=== PATIENT | male | born 1960 | race Two or more races ===

== ENCOUNTER 2016-07-21 17:26 | Inpatient (IN) | payer OTHER ==
[~2016-07-21] VITALS: Ht 170.2 cm; Wt 91.4 kg
[~2016-07-21 17:26] MED LIST: ASPIR 8181 M1 PO; ATORVASTATIN CA20 MG PO; BENICAR40 MG PO; Colace PO; Ecotrin PO; GLIPIZIDE10 MG PO; GLUCAGEN1 MG IM/SC; GLUCOTROL10 MG PO; Glucotrol PO; Heparin IV; Januvia PO; KEFLEX500 MG PO; LIPITOR20 MG PO; LISINOPRIL10 MG PO; LOPRESSOR25 MG PO; LOW DOSE ASPIRI81 M2 PO; Lipitor PO; METFORMIN HCL500 MG PO; NAPROSYN500 MG PO; NORVASC5 MG PO; Nitrostat,NitroQuick SL; PERCOCET 5/31 TABLET PO; Plavix PO; Senokot S,Pericolace PO; TRAMADOL HCL50 MG PO; Toprol XL PO; Xanax PO; Zestril,Prinivil PO
[2016-07-21 19:41] LABS: EOSINOPHIL (%) 2.7 % (0-5); EOSINOPHIL COUNT 0.2 K/uL (0-0.3); HEMATOCRIT 30.6 % (38.0-50.0); IMMATURE GRANULOCYTE (%) 0.1 % (0.0-0.7); IMMATURE GRANULOCYTE COUNT 0.1 K/uL; MCH 26.7 PG (29.0-34.0); MCHC 32.7 G/DL (30.0-36.0); MCV 81.8 FL (86-99); MEAN PLAT.VOLUME 11.3 uM^3 (9.0-12.4); MONOCYTE COUNT 0.5 K/uL (0-0.8); NEUTROPHIL (%) 61.6 % (45-76); NEUTROPHIL COUNT 4.3 K/uL (1.8-6.4); PLATELET COUNT 275 K/uL (156-360); RBC DIS.WIDTH-CV 13.6 % (11.8-14.6); RBC DIS.WIDTH-SD 39.2 % (39-53); RED BLOOD COUNT 3.74 M/uL (4.00-5.50)
[2016-07-21] MEDS ORDERED: IRBESARTAN300 MG PO (19:51)
[2016-07-21] MEDS ORDERED: CLOPIDOGREL75 MG PO (19:52)
[2016-07-21] MEDS ORDERED: AMLODIPINE BESY10 MG PO (19:53)
[2016-07-21] MEDS ORDERED: JANUVIA25 M1 PO (19:53)
[2016-07-21] MEDS ORDERED: LISINOPRIL30 MG PO ×2 (19:54)
[2016-07-21] MEDS ORDERED: GLUCOPHAGE1000 MG PO (19:55)
[2016-07-21] MEDS ORDERED: LOPRESSOR25 MG PO (19:56)
[2016-07-21] MEDS ORDERED: ERGOCALCIF50000 UNIT PO (19:57)
[2016-07-21 19:59] LABS: ANION GAP 7 MEQ/L (2-14)
[2016-07-21 20:00] LABS: GLUCOSE 62 mg/dL (70-99); TOTAL BILIRUBIN 0.2 mg/dL (0.0-1.0)
[2016-07-21 20:02] LABS: ALKALINE PHOSPHATASE 56 IU/L (3-129); GFR ESTIMATE (CALCULATED) 22 mL/min/
[2016-07-21 20:03] LABS: UREA NITROGEN (BUN) 52 mg/dL (9-23)
[2016-07-21 20:12] LABS: CHLORIDE 113 mEq/L (99-109); SODIUM 140 mEq/L (136-147)
[2016-07-21 20:16] LABS: POTASSIUM 6.8 mEq/L (3.7-5.4)
[2016-07-21 21:13] LABS: TROP-I INTERPRETATION NEGATIVE; TROPONIN-I 0.02 ng/mL (0.0-0.30)
[2016-07-21 21:49] LABS: ADD MIUA? YES; BILIRUBIN NEGATIVE; BLOOD NEGATIVE; COLOR STRAW ((YELLOW)); GLUCOSE (STRIP) NEGATIVE; KETONES NEGATIVE; LEUKOCYTES NEGATIVE; NITRITE NEGATIVE; PROTEIN (STRIP) >=500; SPECIFIC GRAVITY 1.013 (1.000-1.030); UROBILINOGEN 0.2 MG/DL (0.2-1.0)
[2016-07-21 21:57] LABS: BACTERIA RARE /HPF; EPITHELIAL CELLS RARE /HPF; MUCUS TRACE /LPF; RED BLOOD CELLS 0-5 /HPF (0-5); UCUL ADDED? NO; WHITE BLOOD CELLS 0-5 /HPF (0-5)
[2016-07-21 22:36] LABS: POINT-OF-CARE METER ID UU14100415
[2016-07-21 23:26] LABS: CHLORIDE 111 mEq/L (99-109); SODIUM 140 mEq/L (136-147)
[2016-07-21 23:29] LABS: ANION GAP 9 MEQ/L (2-14)
[2016-07-21 23:31] LABS: GFR ESTIMATE (CALCULATED) 23 mL/min/
[2016-07-21 23:32] LABS: UREA NITROGEN (BUN) 47 mg/dL (9-23)
[2016-07-21 23:38] LABS: GLUCOSE 146 mg/dL (70-99); POTASSIUM 5.2 mEq/L (3.7-5.4)
[2016-07-22 00:02] LABS: UR CREATININE CONCENTRATION 86.8 MG/DL
[2016-07-22 00:10] VITALS: BP 168/81
[2016-07-22 04:00] VITALS: BP 141/76
[2016-07-22 06:05] LABS: EOSINOPHIL (%) 2.2 % (0-5); EOSINOPHIL COUNT 0.1 K/uL (0-0.3); HEMATOCRIT 26.5 % (38.0-50.0); IMMATURE GRANULOCYTE (%) 0.2 % (0.0-0.7); LYMPHOCYTE COUNT 1.7 K/uL (1.0-2.8); MCH 27.4 PG (29.0-34.0); MCHC 32.8 G/DL (30.0-36.0); MCV 83.3 FL (86-99); MEAN PLAT.VOLUME 11.4 uM^3 (9.0-12.4); MONOCYTE (%) 7.4 % (3-12); MONOCYTE COUNT 0.4 K/uL (0-0.8); NEUTROPHIL (%) 58.2 % (45-76); NEUTROPHIL COUNT 3.2 K/uL (1.8-6.4); PLATELET COUNT 243 K/uL (156-360); RBC DIS.WIDTH-CV 13.5 % (11.8-14.6); RBC DIS.WIDTH-SD 41.3 % (39-53); RED BLOOD COUNT 3.18 M/uL (4.00-5.50); WHITE BLOOD COUNT 5.4 K/uL (4.1-10.2)
[2016-07-22 06:28] LABS: C3 COMPLEMENT 156 MG/DL (58-170); C4 COMPLEMENT 55 MG/DL (10-40)
[2016-07-22 06:29] LABS: ALKALINE PHOSPHATASE 44 IU/L (3-129); ANION GAP 5 MEQ/L (2-14); CHLORIDE 112 MEQ/L (99-109); DIRECT BILIRUBIN 0.1 mg/dL (0.0-0.3); GFR ESTIMATE (CALCULATED) 25 mL/min/; GLUCOSE 114 mg/dL (70-99); IRON 53 MCG/DL (35-150); POTASSIUM 5.2 MEQ/L (3.7-5.4); SAMPLE HEMOLYSIS CHECK 0; SAMPLE ICTERIC CHECK 0; SAMPLE LIPEMIA CHECK 0; SODIUM 139 MEQ/L (136-147); UREA NITROGEN (BUN) 44 mg/dL (9-23)
[2016-07-22 06:33] LABS: TOTAL BILIRUBIN 0.2 MG/DL (0.0-1.0)
[2016-07-22 06:50] LABS: URINE TOTAL PROTEIN 450 MG/DL (0-10)
[2016-07-22 07:19] VITALS: BP 114/55
[2016-07-22 08:00] LABS: INTACT PARATHYROID HORMONE 167 pg/mL (10-69)
[2016-07-22 08:45] LABS: POINT-OF-CARE METER ID UU13113698
[2016-07-22 11:23] VITALS: BP 122/70
[2016-07-22 11:44] LABS: POINT-OF-CARE METER ID UU14174216
[2016-07-22 12:39] LABS: HBSG INDEX 0.27; HPCA INDEX 0.21
[2016-07-22 12:40] LABS: AHBS INDEX 0.02; HEPATITIS B SURFACE ANTIBODY Nonreactive
[2016-07-22 14:24] LABS: ANION GAP 8 MEQ/L (2-14); CHLORIDE 112 MEQ/L (99-109); GFR ESTIMATE (CALCULATED) 25 mL/min/; GLUCOSE 159 mg/dL (70-99); POTASSIUM 5.5 MEQ/L (3.7-5.4); SAMPLE HEMOLYSIS CHECK 0; SAMPLE ICTERIC CHECK 0; SAMPLE LIPEMIA CHECK 0; SODIUM 141 MEQ/L (136-147); UREA NITROGEN (BUN) 43 mg/dL (9-23)
[2016-07-22 16:26] LABS: POINT-OF-CARE METER ID UU14174216
[2016-07-22 16:53] VITALS: BP 154/79
[2016-07-22 20:35] VITALS: BP 127/60
[2016-07-22 21:03] LABS: POINT-OF-CARE METER ID UU13113698
[2016-07-23 00:20] VITALS: BP 120/58
[2016-07-23 04:40] VITALS: BP 140/74
[2016-07-23 07:03] LABS: EOSINOPHIL (%) 2.9 % (0-5); EOSINOPHIL COUNT 0.2 K/uL (0-0.3); HEMATOCRIT 22.3 % (38.0-50.0); IMMATURE GRANULOCYTE (%) 0.2 % (0.0-0.7); LYMPHOCYTE COUNT 1.9 K/uL (1.0-2.8); MCH 27.8 PG (29.0-34.0); MCHC 33.6 G/DL (30.0-36.0); MCV 82.6 FL (86-99); MEAN PLAT.VOLUME 11.2 uM^3 (9.0-12.4); MONOCYTE (%) 7.4 % (3-12); MONOCYTE COUNT 0.5 K/uL (0-0.8); NEUTROPHIL (%) 58.3 % (45-76); NEUTROPHIL COUNT 3.7 K/uL (1.8-6.4); PLATELET COUNT 200 K/uL (156-360); RBC DIS.WIDTH-CV 13.6 % (11.8-14.6); RBC DIS.WIDTH-SD 41.5 % (39-53); WHITE BLOOD COUNT 6.3 K/uL (4.1-10.2)
[2016-07-23 07:34] LABS: ANION GAP 8 MEQ/L (2-14); CHLORIDE 112 MEQ/L (99-109); GFR ESTIMATE (CALCULATED) 27 mL/min/; GLUCOSE 158 mg/dL (70-99); POTASSIUM 5.4 MEQ/L (3.7-5.4); SAMPLE HEMOLYSIS CHECK 0; SAMPLE ICTERIC CHECK 0; SAMPLE LIPEMIA CHECK 0; SODIUM 140 MEQ/L (136-147); UREA NITROGEN (BUN) 41 mg/dL (9-23)
[2016-07-23 08:09] LABS: POINT-OF-CARE METER ID UU13113698
[2016-07-23 08:10] VITALS: BP 157/76
[2016-07-23 11:09] LABS: IFE GEL NO. 18-9
[2016-07-23 11:15] VITALS: BP 130/60
[2016-07-23 16:00] VITALS: BP 116/59
[2016-07-23 19:15] VITALS: BP 174/77
[2016-07-24] VITALS (7 sets, daily range): BP systolic 131–192; BP diastolic 66–84
[2016-07-24 05:07] LABS: ABSOLUTE RETICULOCYTE CT. 0.05 M/uL (0.02-0.08); HEMATOCRIT 26.2 % (38.0-50.0); IMM.RETIC FRACTION 6.3 % (3-19); MCH 27.6 PG (29.0-34.0); MCHC 33.6 G/DL (30.0-36.0); MCV 82.1 FL (86-99); MEAN PLAT.VOLUME 11.3 uM^3 (9.0-12.4); PLATELET COUNT 222 K/uL (156-360); RBC DIS.WIDTH-CV 13.3 % (11.8-14.6); RBC DIS.WIDTH-SD 40.3 % (39-53); RED BLOOD COUNT 3.19 M/uL (4.00-5.50); RETICULOCYTE COUNT 1.7 % (0.5-1.8); WHITE BLOOD COUNT 6.1 K/uL (4.1-10.2)
[2016-07-24 05:45] LABS: ALKALINE PHOSPHATASE 42 IU/L (3-129); ANION GAP 8 MEQ/L (2-14); CHLORIDE 110 MEQ/L (99-109); GFR ESTIMATE (CALCULATED) 29 mL/min/; GLUCOSE 145 mg/dL (70-99); IRON 342 MCG/DL (35-150); POTASSIUM 4.8 MEQ/L (3.7-5.4); SAMPLE HEMOLYSIS CHECK 0; SAMPLE ICTERIC CHECK 0; SAMPLE LIPEMIA CHECK 0; SODIUM 139 MEQ/L (136-147); TOTAL BILIRUBIN 0.2 MG/DL (0.0-1.0); UREA NITROGEN (BUN) 35 mg/dL (9-23)
[2016-07-24 05:50] LABS: LACTATE DEHYDROGENASE 121 IU/L (20-246)
[2016-07-24 11:30] LABS: IFE GEL NO. 19-4
[2016-07-24 16:19] LABS: POINT-OF-CARE METER ID UU13113698
[2016-07-24] MEDS ORDERED: CLONIDINE HCL0.1 MG PO (18:43)
[2016-07-24] MEDS ORDERED: LOPRESSOR25 MG PO (18:43)
[2016-07-24] MEDS ORDERED: PANTOPRAZOLE SO40 MG PO (18:44)
[2016-07-24] MEDS ORDERED: Vitamin B-12 PO (18:45)
[2016-07-24] MEDS ORDERED: CALCITRIOL0.25 MCG PO (18:45)
[2016-07-27 23:50] LABS: Cryoglobulin, Qualitative None Detected (None Detected)
== END 2016-07-24 19:40 | disposition home or self-care (01) | DRG 641 ==
LOC: EME 17:26 → 4EAST 21:27 → EDOF 21:27 → 4EAST 23:58
PROVIDERS: Emergency Medicine; Internal Medicine; Internal Medicine Nephrology; Psychiatry & Neurology Neurology
DX: E87.5 Hyperkalemia (principal); N17.9 Acute kidney failure, unspecified; E11.21 Type 2 diabetes mellitus with diabetic nephropathy; E11.65 Type 2 diabetes mellitus with hyperglycemia; E87.2 Acidosis; N28.1 Cyst of kidney, acquired; N18.3 Chronic kidney disease, stage 3 (moderate); I12.9 Hypertensive chronic kidney disease with stage 1 through stage 4 chronic kidney disease, or unspecified chronic kidney disease; D64.9 Anemia, unspecified; E66.9 Obesity, unspecified; E78.5 Hyperlipidemia, unspecified; I25.10 Atherosclerotic heart disease of native coronary artery without angina pectoris; Z95.1 Presence of aortocoronary bypass graft; Z79.1 Long term (current) use of non-steroidal anti-inflammatories (NSAID); I25.2 Old myocardial infarction; Z68.30 Body mass index [BMI] 30.0-30.9, adult
CPT/HCPCS: 36415; 71010; 76770; 80048 91; 80053; 80061; 80069; 80076; 81003; 82272; 82306; 82436; 82570; 82595 90; 82607; 82746; 82948; 83036; 83540; 83615; 83735; 83970; 84100; 84133; 84156; 84300; 84439; 84466; 84484; 85025; 85027; 85045; 86160; 86334; 86335; 86706; 86803; 87340; 93005; 99281; 99285; J0610; J0881; J1756; J1815; J7030; J7050

== ENCOUNTER 2016-07-26 11:12 | Emergency (ER) | payer OTHER ==
[~2016-07-26] VITALS: Ht 170.2 cm; Wt 90.1 kg
[~2016-07-26 11:12] MED LIST changes: +AMLODIPINE BESY10 MG PO; +CALCITRIOL0.25 MCG PO; +CLONIDINE HCL0.1 MG PO; +CLOPIDOGREL75 MG PO; +ERGOCALCIF50000 UNIT PO; +GLUCOPHAGE1000 MG PO; +IRBESARTAN300 MG PO; +JANUVIA25 M1 PO; +LISINOPRIL30 MG PO; +PANTOPRAZOLE SO40 MG PO; +Vitamin B-12 PO
[2016-07-26 11:35] VITALS: BP 138/76
[2016-07-26] MEDS ORDERED: LOPRESSOR25 MG PO (23:29)
[2016-07-26] MEDS ORDERED: PROTONIX40 MG PO (23:31)
[2016-07-26] MEDS ORDERED: B-12500 MC1 SL (23:33)
[2016-07-26] MEDS ORDERED: COZAAR100 MG PO (23:33)
== END 2016-07-26 13:07 | disposition left against medical advice (07) ==
LOC: EME 11:12
DX: M79.601 Pain in right arm (principal); Z53.21 Procedure and treatment not carried out due to patient leaving prior to being seen by health care provider

== ENCOUNTER 2016-07-26 18:53 | Inpatient (IN) | payer OTHER ==
[~2016-07-26] VITALS: Ht 170.2 cm; Wt 88.4 kg
[2016-07-26 20:00] LABS: HEMATOCRIT 28.2 % (38.0-50.0); MCH 27.7 PG (29.0-34.0); MCHC 33.7 G/DL (30.0-36.0); MCV 82.2 FL (86-99); MEAN PLAT.VOLUME 11.2 uM^3 (9.0-12.4); PLATELET COUNT 268 K/uL (156-360); RBC DIS.WIDTH-CV 13.7 % (11.8-14.6); RBC DIS.WIDTH-SD 38.5 % (39-53); RED BLOOD COUNT 3.43 M/uL (4.00-5.50)
[2016-07-26 20:06] LABS: INTER. NORMALIZED RATIO 1.1; PROTHROMBIN TIME 10.7 (9.2-11.2); PTT 32.6 (25-32); WHITE BLOOD COUNT 10.3 K/uL (4.1-10.2)
[2016-07-26 21:02] LABS: CHLORIDE 109 mEq/L (99-109); POTASSIUM 4.7 mEq/L (3.7-5.4); SODIUM 138 mEq/L (136-147)
[2016-07-26 21:05] LABS: ANION GAP 13 MEQ/L (2-14)
[2016-07-26 21:06] LABS: GLUCOSE 239 mg/dL (70-99)
[2016-07-26 21:07] LABS: GFR ESTIMATE (CALCULATED) 22 mL/min/
[2016-07-26 21:08] LABS: UREA NITROGEN (BUN) 43 mg/dL (9-23)
[2016-07-26] MEDS ORDERED: LOPRESSOR25 MG PO (23:29)
[2016-07-26] MEDS ORDERED: PROTONIX40 MG PO (23:31)
[2016-07-26] MEDS ORDERED: COZAAR100 MG PO (23:33)
[2016-07-26] MEDS ORDERED: B-12500 MC1 SL (23:33)
[2016-07-27] VITALS (7 sets, daily range): BP systolic 122–178; BP diastolic 58–78
[2016-07-27 07:35] LABS: HEMATOCRIT 29.1 % (38.0-50.0); MCH 26.5 PG (29.0-34.0); MCHC 32.3 G/DL (30.0-36.0); MEAN PLAT.VOLUME 11.3 uM^3 (9.0-12.4); PLATELET COUNT 233 K/uL (156-360); RBC DIS.WIDTH-CV 13.9 % (11.8-14.6); RED BLOOD COUNT 3.55 M/uL (4.00-5.50); WHITE BLOOD COUNT 7.4 K/uL (4.1-10.2)
[2016-07-27 08:02] LABS: ANION GAP 12 MEQ/L (2-14); CHLORIDE 110 MEQ/L (99-109); POTASSIUM 4.7 MEQ/L (3.7-5.4); SAMPLE HEMOLYSIS CHECK 0; SAMPLE ICTERIC CHECK 0; SAMPLE LIPEMIA CHECK 0; SODIUM 139 MEQ/L (136-147); TOTAL BILIRUBIN 0.2 MG/DL (0.0-1.0)
[2016-07-27 08:07] LABS: ALKALINE PHOSPHATASE 58 IU/L (3-129); GFR ESTIMATE (CALCULATED) 23 mL/min/; GLUCOSE 148 mg/dL (70-99); UREA NITROGEN (BUN) 42 mg/dL (9-23)
[2016-07-27 11:04] LABS: POINT-OF-CARE METER ID UU14162508
[2016-07-28 00:25] VITALS: BP 145/78
[2016-07-28 03:48] VITALS: BP 124/72
[2016-07-28 06:47] LABS: EOSINOPHIL COUNT 0.1 K/uL (0-0.3); HEMATOCRIT 27.1 % (38.0-50.0); IMMATURE GRANULOCYTE (%) 0.9 % (0.0-0.7); IMMATURE GRANULOCYTE COUNT 0.1 K/uL; LYMPHOCYTE COUNT 1.7 K/uL (1.0-2.8); MCH 27.3 PG (29.0-34.0); MCHC 33.2 G/DL (30.0-36.0); MCV 82.1 FL (86-99); MEAN PLAT.VOLUME 11.9 uM^3 (9.0-12.4); MONOCYTE (%) 6.5 % (3-12); MONOCYTE COUNT 0.5 K/uL (0-0.8); NEUTROPHIL (%) 65.1 % (45-76); NEUTROPHIL COUNT 4.5 K/uL (1.8-6.4); NRBC (%) 0.6 /100 WBC (0-0); PLATELET COUNT 255 K/uL (156-360); RBC DIS.WIDTH-SD 41.1 % (39-53); WHITE BLOOD COUNT 6.9 K/uL (4.1-10.2)
[2016-07-28 07:12] LABS: ANION GAP 12 MEQ/L (2-14); CHLORIDE 107 MEQ/L (99-109); GFR ESTIMATE (CALCULATED) 24 mL/min/; GLUCOSE 161 mg/dL (70-99); POTASSIUM 4.5 MEQ/L (3.7-5.4); SAMPLE HEMOLYSIS CHECK 0; SAMPLE ICTERIC CHECK 0; SAMPLE LIPEMIA CHECK 0; SODIUM 139 MEQ/L (136-147); UREA NITROGEN (BUN) 39 mg/dL (9-23)
[2016-07-28 07:30] VITALS: BP 167/72
[2016-07-28 11:24] VITALS: BP 131/60
[2016-07-28 11:32] LABS: POINT-OF-CARE METER ID UU14162508
[2016-07-28] MEDS ORDERED: CEPHALEXIN500 MG PO (14:27)
[2016-07-28] MEDS ORDERED: ENDOCET 5-3251 EACH PO (14:27)
== END 2016-07-28 17:05 | disposition home or self-care (01) | DRG 300 ==
LOC: EME 18:53 → EDOF 23:36 → 2EAST 23:36
PROVIDERS: Internal Medicine
DX: T81.72XA Complication of vein following a procedure, not elsewhere classified, initial encounter (principal); T88.8XXA Other specified complications of surgical and medical care, not elsewhere classified, initial encounter; I80.8 Phlebitis and thrombophlebitis of other sites; L03.113 Cellulitis of right upper limb; I12.9 Hypertensive chronic kidney disease with stage 1 through stage 4 chronic kidney disease, or unspecified chronic kidney disease; N18.9 Chronic kidney disease, unspecified; R78.5 Finding of other psychotropic drug in blood; E11.22 Type 2 diabetes mellitus with diabetic chronic kidney disease; I25.10 Atherosclerotic heart disease of native coronary artery without angina pectoris; Z95.1 Presence of aortocoronary bypass graft; E78.5 Hyperlipidemia, unspecified; E55.9 Vitamin D deficiency, unspecified; E53.8 Deficiency of other specified B group vitamins; R10.13 Epigastric pain; D64.9 Anemia, unspecified; E66.9 Obesity, unspecified; Z68.30 Body mass index [BMI] 30.0-30.9, adult; Y84.8 Other medical procedures as the cause of abnormal reaction of the patient, or of later complication, without mention of misadventure at the time of the procedure
CPT/HCPCS: 80048; 80053; 82948; 85025; 85027; 85610; 85730; 87040; 93971; 99281; 99285; J0696; J1644; J1815; J3370; J3420; J7050

== ENCOUNTER 2016-09-13 11:15 | Inpatient (IN) | payer OTHER ==
[~2016-09-13] VITALS: Ht 170.2 cm; Wt 87.2 kg
[~2016-09-13 11:15] MED LIST changes: +B-12500 MC1 SL; +CEPHALEXIN500 MG PO; +COZAAR100 MG PO; +ENDOCET 5-3251 EACH PO; +PROTONIX40 MG PO
[2016-09-13 11:33] LABS: BASE EXCESS -7.9 mEq/L (-3 to +3); BICARBONATE 16.4 mEq/L (22-26); CARBOXY HGB 0.8 % (0-5); COMMENTS - BLOOD GASES A+C+; DEVICE RA; METHEMOGLOBIN 0.5 % (0-1.5); PCO2 29 mm Hg (35-45); PO2 99 mm Hg (80-100); SITE RR; pH 7.36 (7.35-7.45)
[2016-09-13 11:48] LABS: ANION GAP 17 MEQ/L (2-14); CHLORIDE 109 mEq/L (99-109); CREATININE 2.8 mg/dL (0.6-1.3); GLUCOSE 216 mg/dL (70-99); ISTAT DEVICE 369301; POTASSIUM > 6.0 mEq/L (3.7-5.4); SODIUM 137 mEq/L (136-147); UREA NITROGEN (BUN) 44 mg/dL (9-23)
[2016-09-13 11:52] LABS: BASOPHIL COUNT 0.1 K/uL (0-0.1); EOSINOPHIL (%) 0.5 % (0-5); EOSINOPHIL COUNT 0.1 K/uL (0-0.3); HEMATOCRIT 33.9 % (38.0-50.0); IMMATURE GRANULOCYTE (%) 0.3 % (0.0-0.7); INSTRUMENT ABS NEUTROPHIL CT 9.5 K/uL; LYMPHOCYTE COUNT 1.2 K/uL (1.0-2.8); MCH 25.6 PG (29.0-34.0); MCHC 30.7 G/DL (30.0-36.0); MCV 83.5 FL (86-99); MEAN PLAT.VOLUME 11.5 uM^3 (9.0-12.4); MONOCYTE COUNT 0.3 K/uL (0-0.8); NEUTROPHIL (%) 85.4 % (45-76); NEUTROPHIL COUNT 9.5 K/uL (1.8-6.4); PLATELET COUNT 285 K/uL (156-360); RBC DIS.WIDTH-CV 14.1 % (11.8-14.6); RBC DIS.WIDTH-SD 43.3 % (39-53); RED BLOOD COUNT 4.06 M/uL (4.00-5.50); WHITE BLOOD COUNT 11.1 K/uL (4.1-10.2)
[2016-09-13 12:03] LABS: CHLORIDE 109 mEq/L (99-109); SODIUM 136 mEq/L (136-147)
[2016-09-13 12:05] LABS: GLUCOSE 217 mg/dL (70-99)
[2016-09-13 12:06] LABS: ANION GAP 10 MEQ/L (2-14)
[2016-09-13 12:07] LABS: TOTAL BILIRUBIN 0.2 mg/dL (0.0-1.0)
[2016-09-13 12:09] LABS: ALKALINE PHOSPHATASE 78 IU/L (3-129); GFR ESTIMATE (CALCULATED) 25 mL/min/
[2016-09-13 12:10] LABS: UREA NITROGEN (BUN) 46 mg/dL (9-23)
[2016-09-13 12:14] LABS: TROP-I INTERPRETATION NEGATIVE; TROPONIN-I < 0.01 ng/mL (0.0-0.30)
[2016-09-13 12:46] LABS: POTASSIUM 6.7 mEq/L (3.7-5.4)
[2016-09-13] MEDS ORDERED: ALEVE220 MG PO (14:52)
[2016-09-13] MEDS ORDERED: NABI650T PO (14:52)
[2016-09-13] MEDS ORDERED: HYDRALAZINE HCL25 MG PO (14:52)
[2016-09-13 16:30] VITALS: BP 181/87
[2016-09-13 18:50] VITALS: BP 176/77
[2016-09-13 23:32] VITALS: BP 123/58
[2016-09-14] VITALS (7 sets, daily range): BP systolic 121–163; BP diastolic 61–76
[2016-09-14 06:35] LABS: HEMATOCRIT 28.9 % (38.0-50.0); MCH 25.7 PG (29.0-34.0); MCHC 30.8 G/DL (30.0-36.0); MCV 83.5 FL (86-99); MEAN PLAT.VOLUME 11.4 uM^3 (9.0-12.4); PLATELET COUNT 231 K/uL (156-360); RBC DIS.WIDTH-CV 14.4 % (11.8-14.6); RBC DIS.WIDTH-SD 43.8 % (39-53); RED BLOOD COUNT 3.46 M/uL (4.00-5.50)
[2016-09-14 06:37] LABS: WHITE BLOOD COUNT 7.7 K/uL (4.1-10.2)
[2016-09-14 06:59] LABS: ALKALINE PHOSPHATASE 45 IU/L (3-129); ANION GAP 7 MEQ/L (2-14); CHLORIDE 111 MEQ/L (99-109); GFR ESTIMATE (CALCULATED) 25 mL/min/; GLUCOSE 148 mg/dL (70-99); POTASSIUM 6.7 MEQ/L (3.7-5.4); SAMPLE HEMOLYSIS CHECK 0; SAMPLE ICTERIC CHECK 0; SAMPLE LIPEMIA CHECK 0; SODIUM 138 MEQ/L (136-147); TOTAL BILIRUBIN 0.3 MG/DL (0.0-1.0); UREA NITROGEN (BUN) 38 mg/dL (9-23)
[2016-09-14 10:53] LABS: IRON 61 MCG/DL (35-150)
[2016-09-14 11:48] LABS: POINT-OF-CARE METER ID UU13113725
[2016-09-14 14:14] LABS: TROP-I INTERPRETATION NEGATIVE; TROPONIN-I 0.02 ng/mL (0.0-0.30)
[2016-09-14 14:26] LABS: ANION GAP 9 MEQ/L (2-14); CHLORIDE 109 MEQ/L (99-109); GFR ESTIMATE (CALCULATED) 26 mL/min/; GLUCOSE 198 mg/dL (70-99); SAMPLE HEMOLYSIS CHECK 0; SAMPLE ICTERIC CHECK 0; SAMPLE LIPEMIA CHECK 0; SODIUM 138 MEQ/L (136-147); UREA NITROGEN (BUN) 37 mg/dL (9-23)
[2016-09-14 14:27] LABS: POTASSIUM 4.9 MEQ/L (3.7-5.4)
[2016-09-14 16:17] LABS: POINT-OF-CARE METER ID UU13113725
[2016-09-14 21:26] LABS: POINT-OF-CARE METER ID UU13113725
[2016-09-14 22:02] LABS: TROP-I INTERPRETATION NEGATIVE; TROPONIN-I 0.01 ng/mL (0.0-0.30)
[2016-09-15 03:17] VITALS: BP 140/62
[2016-09-15 06:10] LABS: POINT-OF-CARE METER ID UU13113725
[2016-09-15 06:35] LABS: ANION GAP 9 MEQ/L (2-14); CHLORIDE 107 MEQ/L (99-109); GFR ESTIMATE (CALCULATED) 27 mL/min/; GLUCOSE 148 mg/dL (70-99); POTASSIUM 4.2 MEQ/L (3.7-5.4); SAMPLE HEMOLYSIS CHECK 0; SAMPLE ICTERIC CHECK 0; SAMPLE LIPEMIA CHECK 0; SODIUM 137 MEQ/L (136-147); UREA NITROGEN (BUN) 32 mg/dL (9-23)
[2016-09-15 06:41] LABS: TROP-I INTERPRETATION NEGATIVE; TROPONIN-I 0.02 ng/mL (0.0-0.30)
[2016-09-15 07:54] VITALS: BP 161/74
[2016-09-15 11:28] LABS: POINT-OF-CARE METER ID UU13113725
[2016-09-15 12:08] VITALS: BP 186/86
[2016-09-15 16:08] LABS: EOSINOPHIL (%) 2.2 % (0-5); EOSINOPHIL COUNT 0.2 K/uL (0-0.3); HEMATOCRIT 28.9 % (38.0-50.0); IMMATURE GRANULOCYTE (%) 0.3 % (0.0-0.7); INSTRUMENT ABS NEUTROPHIL CT 3.9 K/uL; LYMPHOCYTE COUNT 2.3 K/uL (1.0-2.8); MCH 26.9 PG (29.0-34.0); MCHC 31.8 G/DL (30.0-36.0); MCV 84.5 FL (86-99); MEAN PLAT.VOLUME 11.8 uM^3 (9.0-12.4); MONOCYTE (%) 4.7 % (3-12); MONOCYTE COUNT 0.3 K/uL (0-0.8); NEUTROPHIL COUNT 3.9 K/uL (1.8-6.4); PLATELET COUNT 219 K/uL (156-360); RBC DIS.WIDTH-SD 43.6 % (39-53); RED BLOOD COUNT 3.42 M/uL (4.00-5.50); WHITE BLOOD COUNT 6.8 K/uL (4.1-10.2)
[2016-09-15 16:26] LABS: POINT-OF-CARE METER ID UU13113725
[2016-09-15 16:31] LABS: ALKALINE PHOSPHATASE 46 IU/L (3-129); DIRECT BILIRUBIN 0.1 mg/dL (0.0-0.3); LIPASE 161 U/L (1.0-51.0); TOTAL BILIRUBIN 0.2 MG/DL (0.0-1.0)
[2016-09-15 17:04] VITALS: BP 140/73
[2016-09-15 19:09] VITALS: BP 144/69
[2016-09-15 22:26] VITALS: BP 189/90
[2016-09-16] VITALS (7 sets, daily range): BP systolic 130–161; BP diastolic 60–73
[2016-09-16 05:38] LABS: POINT-OF-CARE METER ID UU13113725
[2016-09-16 11:07] LABS: POINT-OF-CARE METER ID UU13113725
[2016-09-16 15:30] LABS: HEMATOCRIT 29.5 % (38.0-50.0); MCH 26.6 PG (29.0-34.0); MCHC 33.2 G/DL (30.0-36.0); MCV 79.9 FL (86-99); PLATELET COUNT 231 K/uL (156-360); RBC DIS.WIDTH-CV 13.5 % (11.8-14.6); RBC DIS.WIDTH-SD 39.5 % (39-53); RED BLOOD COUNT 3.69 M/uL (4.00-5.50); WHITE BLOOD COUNT 7.6 K/uL (4.1-10.2)
[2016-09-16 15:42] LABS: ANION GAP 10 MEQ/L (2-14); CHLORIDE 104 MEQ/L (99-109); GFR ESTIMATE (CALCULATED) 27 mL/min/; SAMPLE HEMOLYSIS CHECK 0; SAMPLE ICTERIC CHECK 0; SAMPLE LIPEMIA CHECK 0; SODIUM 135 MEQ/L (136-147); UREA NITROGEN (BUN) 30 mg/dL (9-23)
[2016-09-16 16:03] LABS: GLUCOSE 270 mg/dL (70-99)
[2016-09-16 16:13] LABS: POINT-OF-CARE METER ID UU13113725
[2016-09-17] VITALS (8 sets, daily range): BP systolic 137–176; BP diastolic 66–82
[2016-09-17 07:10] LABS: ANION GAP 9 MEQ/L (2-14); CHLORIDE 104 MEQ/L (99-109); GFR ESTIMATE (CALCULATED) 29 mL/min/; GLUCOSE 156 mg/dL (70-99); POTASSIUM 4.2 MEQ/L (3.7-5.4); SAMPLE HEMOLYSIS CHECK 0; SAMPLE ICTERIC CHECK 0; SAMPLE LIPEMIA CHECK 0; SODIUM 135 MEQ/L (136-147); UREA NITROGEN (BUN) 28 mg/dL (9-23)
[2016-09-17 08:07] LABS: POINT-OF-CARE METER ID UU14174216; POINT-OF-CARE USER ID NUTSLF44
[2016-09-17 11:29] LABS: POINT-OF-CARE METER ID UU14174216; POINT-OF-CARE USER ID NUTSLF44
[2016-09-17 18:52] LABS: POINT-OF-CARE USER ID NUTSLF44
[2016-09-18 02:50] VITALS: BP 138/76
[2016-09-18 07:25] LABS: ANION GAP 12 MEQ/L (2-14); CHLORIDE 103 MEQ/L (99-109); GFR ESTIMATE (CALCULATED) 30 mL/min/; GLUCOSE 175 mg/dL (70-99); POTASSIUM 3.9 MEQ/L (3.7-5.4); SAMPLE HEMOLYSIS CHECK 0; SAMPLE ICTERIC CHECK 0; SAMPLE LIPEMIA CHECK 0; SODIUM 134 MEQ/L (136-147); UREA NITROGEN (BUN) 31 mg/dL (9-23)
[2016-09-18 09:04] VITALS: BP 142/86
[2016-09-18 11:27] LABS: POINT-OF-CARE USER ID ENVKC36
[2016-09-18 12:08] VITALS: BP 160/82
[2016-09-18 16:06] VITALS: BP 150/86
[2016-09-18 19:45] VITALS: BP 168/82
[2016-09-18 23:15] VITALS: BP 138/72
[2016-09-19 03:20] VITALS: BP 147/76
[2016-09-19 05:39] LABS: ANION GAP 9 MEQ/L (2-14); CHLORIDE 105 MEQ/L (99-109); GFR ESTIMATE (CALCULATED) 30 mL/min/; GLUCOSE 184 mg/dL (70-99); MAGNESIUM 1.3 mg/dl (1.3-2.7); POTASSIUM 3.7 MEQ/L (3.7-5.4); SAMPLE HEMOLYSIS CHECK 0; SAMPLE ICTERIC CHECK 0; SAMPLE LIPEMIA CHECK 0; SODIUM 135 MEQ/L (136-147); UREA NITROGEN (BUN) 32 mg/dL (9-23)
[2016-09-19 07:42] VITALS: BP 160/72
[2016-09-19 11:40] VITALS: BP 160/80
[2016-09-19 16:02] VITALS: BP 172/80
[2016-09-19 20:55] VITALS: BP 158/70
[2016-09-19 23:08] VITALS: BP 150/70
[2016-09-20 04:01] VITALS: BP 148/70
[2016-09-20 05:27] LABS: CHLORIDE 108 mEq/L (99-109); POTASSIUM 3.8 mEq/L (3.7-5.4); SODIUM 137 mEq/L (136-147)
[2016-09-20 05:29] LABS: GLUCOSE 203 mg/dL (70-99)
[2016-09-20 05:30] LABS: ANION GAP 9 MEQ/L (2-14)
[2016-09-20 05:33] LABS: GFR ESTIMATE (CALCULATED) 27 mL/min/
[2016-09-20 05:34] LABS: UREA NITROGEN (BUN) 36 mg/dL (9-23)
[2016-09-20 07:38] LABS: POINT-OF-CARE METER ID UU14174216
[2016-09-20 08:30] VITALS: BP 158/86
[2016-09-20 11:56] LABS: POINT-OF-CARE METER ID UU14174216
[2016-09-20 12:28] VITALS: BP 122/60
[2016-09-20 16:10] VITALS: BP 142/73
[2016-09-20 16:23] LABS: POINT-OF-CARE METER ID UU14174216
[2016-09-20 20:26] VITALS: BP 146/78
[2016-09-20 21:10] LABS: POINT-OF-CARE METER ID UU14174216
[2016-09-20 23:36] VITALS: BP 128/74
[2016-09-21 05:32] VITALS: BP 136/78
[2016-09-21 07:46] VITALS: BP 142/75
[2016-09-21 08:07] LABS: ANION GAP 10 MEQ/L (2-14); CHLORIDE 108 MEQ/L (99-109); GFR ESTIMATE (CALCULATED) 23 mL/min/; GLUCOSE 200 mg/dL (70-99); POTASSIUM 4.1 MEQ/L (3.7-5.4); SAMPLE HEMOLYSIS CHECK 0; SAMPLE ICTERIC CHECK 0; SAMPLE LIPEMIA CHECK 0; SODIUM 137 MEQ/L (136-147); UREA NITROGEN (BUN) 44 mg/dL (9-23)
[2016-09-21 11:30] VITALS: BP 125/60
[2016-09-21 16:56] VITALS: BP 132/85
[2016-09-21 19:34] VITALS: BP 144/78
[2016-09-21 21:38] LABS: POINT-OF-CARE METER ID UU14174216; POINT-OF-CARE USER ID ENVMNS
[2016-09-21 23:18] VITALS: BP 122/72
[2016-09-22 04:53] VITALS: BP 134/70
[2016-09-22 06:30] LABS: HDL CHOLESTEROL 26 MG/DL (Desirable>=40); LDL CHOLESTEROL 91 mg/dL (Desirable<100); NON-HDL CHOLESTEROL 157 mg/dL (Desirable<160); TOTAL CHOLESTEROL 183 mg/dL (Desirable<200); TRIGLYCERIDES 330 MG/DL (Normal: <150)
[2016-09-22 07:36] LABS: POINT-OF-CARE METER ID UU14174216
[2016-09-22 08:15] VITALS: BP 149/72
[2016-09-22 11:32] LABS: POINT-OF-CARE METER ID UU14174216
[2016-09-22 11:50] VITALS: BP 138/74
[2016-09-22] MEDS ORDERED: ARANESP60 MCG/0.3 SC (12:28)
[2016-09-22] MEDS ORDERED: APRESOLINE50 MG PO (12:28)
[2016-09-22] MEDS ORDERED: ESCITALOPRAM OX10 MG PO (12:29)
[2016-09-22] MEDS ORDERED: NOVOLOG PE100 UNITS/ SC (12:30)
[2016-09-22] MEDS ORDERED: POLYETHYLENE GL17 GM PO (12:31)
[2016-09-22] MEDS ORDERED: FLORINEF ACETA0.1 MG PO (12:31)
[2016-09-22] MEDS ORDERED: BISACODYL5 MG PO (12:31)
[2016-09-24 14:28] LABS: Estimated Average Glucose 154 mg/dL (70-123)
== END 2016-09-22 17:06 | DRG 640 ==
LOC: EME 11:15 → EDOF 14:20 → 5EAST 14:20 → 4EAST 14:20 → 5EAST 16:24 → 4EAST 09-16 22:58
PROVIDERS: Emergency Medicine; Internal Medicine; Internal Medicine Nephrology
DX: E87.5 Hyperkalemia (principal); I63.012 Cerebral infarction due to thrombosis of left vertebral artery; I47.2 Ventricular tachycardia; N17.9 Acute kidney failure, unspecified; N18.4 Chronic kidney disease, stage 4 (severe); E87.2 Acidosis; E11.21 Type 2 diabetes mellitus with diabetic nephropathy; I27.2 Other secondary pulmonary hypertension; I12.9 Hypertensive chronic kidney disease with stage 1 through stage 4 chronic kidney disease, or unspecified chronic kidney disease; E78.5 Hyperlipidemia, unspecified; E11.65 Type 2 diabetes mellitus with hyperglycemia; E11.22 Type 2 diabetes mellitus with diabetic chronic kidney disease; E53.8 Deficiency of other specified B group vitamins; E66.9 Obesity, unspecified; R27.8 Other lack of coordination; G81.94 Hemiplegia, unspecified affecting left nondominant side; E55.9 Vitamin D deficiency, unspecified; R26.9 Unspecified abnormalities of gait and mobility; D63.1 Anemia in chronic kidney disease; Z95.1 Presence of aortocoronary bypass graft; Z86.73 Personal history of transient ischemic attack (TIA), and cerebral infarction without residual deficits; I70.0 Atherosclerosis of aorta; K29.00 Acute gastritis without bleeding; Z68.30 Body mass index [BMI] 30.0-30.9, adult
CPT/HCPCS: 36600; 70544; 70547; 70551; 71010; 74000; 76705; 80047; 80048; 80048 91; 80053; 80061; 80069; 80076; 82803; 82948; 83036; 83540; 83690; 83735; 84100; 84132 91; 84466; 84484; 84999; 85025; 85027; 93005; 93306; 93880; 94640; 97530 GP; 99281; 99285; C9113; J0610; J0881; J1644; J1815; J2405; J2765; J7030; J7050

== ENCOUNTER → 2016-11-16 | Outpatient (CLI) | payer OTHER ==
[~2016-11-16] MED LIST changes: +ALEVE220 MG PO; +APRESOLINE50 MG PO; +ARANESP60 MCG/0.3 SC; +BISACODYL5 MG PO; +CARBAMAZEPINE200 MG PO; +ESCITALOPRAM OX10 MG PO; +FLORINEF ACETA0.1 MG PO; +HYDRALAZINE HCL25 MG PO; +LYRICA50 MG PO; +NABI650T PO; +NOVOLOG PE100 UNITS/ SC; +POLYETHYLENE GL17 GM PO; +PREDNISONE10 MG PO
== END | disposition home or self-care (01) ==
LOC: AMB 08:40
PROC: 03BT0ZX Excision of Left Temporal Artery, Open Approach, Diagnostic (ICD-10-PCS; principal; 2016-11-16)
DX: R51 Headache (principal); R70.0 Elevated erythrocyte sedimentation rate
CPT/HCPCS: 88305

== ENCOUNTER 2016-11-26 21:42 | Emergency (ER) | payer OTHER ==
[~2016-11-26] VITALS: Ht 170.2 cm; Wt 81.8 kg
[2016-11-26 23:00] LABS: HEMATOCRIT 29.6 % (38.0-50.0); MCH 26.5 PG (29.0-34.0); MCHC 31.4 G/DL (30.0-36.0); MCV 84.3 FL (86-99); MEAN PLAT.VOLUME 12.7 uM^3 (9.0-12.4); PLATELET COUNT 201 K/uL (156-360); RBC DIS.WIDTH-CV 14.8 % (11.8-14.6); RBC DIS.WIDTH-SD 45.3 % (39-53); RED BLOOD COUNT 3.51 M/uL (4.00-5.50); WHITE BLOOD COUNT 7.6 K/uL (4.1-10.2)
[2016-11-26 23:13] LABS: CHLORIDE 105 mEq/L (99-109); POTASSIUM 5.5 mEq/L (3.7-5.4); SODIUM 137 mEq/L (136-147)
[2016-11-26 23:15] LABS: GLUCOSE 91 mg/dL (70-99)
[2016-11-26 23:16] LABS: ANION GAP 10 MEQ/L (2-14)
[2016-11-26 23:17] LABS: TOTAL BILIRUBIN 0.2 mg/dL (0.0-1.0)
[2016-11-26 23:19] LABS: ALKALINE PHOSPHATASE 71 IU/L (3-129); GFR ESTIMATE (CALCULATED) 24 mL/min/
[2016-11-26 23:20] LABS: UREA NITROGEN (BUN) 56 mg/dL (9-23)
[2016-11-26] MEDS ORDERED: NORCO 5/3251 TABLET PO (23:40)
[2016-11-27 00:05] VITALS: BP 163/85
== END 2016-11-27 00:18 | disposition home or self-care (01) ==
LOC: EME 21:42
DX: G50.0 Trigeminal neuralgia (principal); Z86.73 Personal history of transient ischemic attack (TIA), and cerebral infarction without residual deficits; E78.5 Hyperlipidemia, unspecified; I10 Essential (primary) hypertension; E11.9 Type 2 diabetes mellitus without complications; Z79.84 Long term (current) use of oral hypoglycemic drugs; Z95.1 Presence of aortocoronary bypass graft; Z79.82 Long term (current) use of aspirin; Z79.02 Long term (current) use of antithrombotics/antiplatelets
CPT/HCPCS: 70450; 80053; 85027; 99281; 99283

== ENCOUNTER 2016-12-06 17:58 | Inpatient (IN) | payer OTHER ==
[~2016-12-06] VITALS: Ht 170.2 cm; Wt 80.2 kg
[~2016-12-06 17:58] MED LIST changes: +NORCO 5/3251 TABLET PO
[2016-12-06] MEDS ORDERED: NORVASC10 MG PO (18:18)
[2016-12-06] MEDS ORDERED: APRESOLINE25 MG PO (18:19)
[2016-12-06] MEDS ORDERED: JANUVIA25 M1 PO (18:19)
[2016-12-06] MEDS ORDERED: LOPRESSOR25 MG PO (18:19)
[2016-12-06] MEDS ORDERED: FLORINEF ACETA0.1 MG PO (18:19)
[2016-12-06] MEDS ORDERED: PLAVIX75 MG PO (18:19)
[2016-12-06] MEDS ORDERED: LO-DOSE ASPIRIN81 M1 PO (18:19)
[2016-12-06] MEDS ORDERED: TEGRETOL200 MG PO (18:20)
[2016-12-06] MEDS ORDERED: TYLENOL EXTRA500 MG PO (18:20)
[2016-12-06] MEDS ORDERED: LIPITOR20 MG PO (18:20)
[2016-12-06] MEDS ORDERED: ROCALTROL0.25 MCG PO ×2 (18:21→18:22)
[2016-12-06] MEDS ORDERED: NABI650T PO (18:21)
[2016-12-06] MEDS ORDERED: ERGOCALCIF50000 UNIT PO (18:21)
[2016-12-06] MEDS ORDERED: LYRICA50 MG PO (18:21)
[2016-12-06] MEDS ORDERED: GLUCOTROL10 MG PO (18:22)
[2016-12-06] MEDS ORDERED: CATAPRES0.1 MG PO (18:22)
[2016-12-06] MEDS ORDERED: LEXAPRO10 MG PO (18:22)
[2016-12-06] MEDS ORDERED: NORCO 5/3251 TABLET PO (18:22)
[2016-12-06 18:31] LABS: CARBON DIOXIDE (BICARBONATE) 24.1 MEQ/L (20-31)
[2016-12-06 18:33] LABS: HEMATOCRIT 31.4 % (38.0-50.0); MCH 26.6 PG (29.0-34.0); MCHC 31.2 G/DL (30.0-36.0); MCV 85.1 FL (86-99); MEAN PLAT.VOLUME 12.2 uM^3 (9.0-12.4); PLATELET COUNT 226 K/uL (156-360); RBC DIS.WIDTH-CV 15.2 % (11.8-14.6); RBC DIS.WIDTH-SD 47.4 % (39-53); RED BLOOD COUNT 3.69 M/uL (4.00-5.50); WHITE BLOOD COUNT 9.4 K/uL (4.1-10.2)
[2016-12-06 18:39] LABS: CHLORIDE 111 mEq/L (99-109); POTASSIUM 5.7 mEq/L (3.7-5.4); SODIUM 143 mEq/L (136-147)
[2016-12-06 18:41] LABS: GLUCOSE 164 mg/dL (70-99)
[2016-12-06 18:43] LABS: ANION GAP 10 MEQ/L (2-14)
[2016-12-06 18:45] LABS: GFR ESTIMATE (CALCULATED) 25 mL/min/
[2016-12-06 18:46] LABS: UREA NITROGEN (BUN) 48 mg/dL (9-23)
[2016-12-06 18:52] LABS: TROP-I INTERPRETATION NEGATIVE; TROPONIN-I 0.01 ng/mL (0.0-0.30)
[2016-12-06 19:25] LABS: CREATINE KINASE 45 IU/L (1-294); TOTAL CK 45 IU/L (1-294)
[2016-12-06 19:33] LABS: CK-MB 0.6 ng/mL (0.0-4.9)
[2016-12-06] MEDS ORDERED: NOVOLOG PE100 UNITS/ SC (20:22)
[2016-12-07] VITALS (11 sets, daily range): BP systolic 114–169; BP diastolic 57–97
[2016-12-07 03:15] LABS: METH RESISTANT S AUREUS PCR NEGATIVE (NEGATIVE)
[2016-12-07 03:20] LABS: TROP-I INTERPRETATION INDETERMINATE
[2016-12-07 03:21] LABS: PROBE CHECK PASS; SPECIMEN PROCESSING CONTROL PASS
[2016-12-07 08:24] LABS: POINT-OF-CARE METER ID UU14162636
[2016-12-07 10:14] LABS: TROP-I INTERPRETATION POSITIVE; TROPONIN-I 7.42 ng/mL (0.0-0.30)
[2016-12-07 10:24] LABS: ANION GAP 8 MEQ/L (2-14); CHLORIDE 110 MEQ/L (99-109); POTASSIUM 5.4 MEQ/L (3.7-5.4); SAMPLE HEMOLYSIS CHECK 0; SAMPLE ICTERIC CHECK 0; SAMPLE LIPEMIA CHECK 0; SODIUM 142 MEQ/L (136-147)
[2016-12-07 10:29] LABS: GFR ESTIMATE (CALCULATED) 25 mL/min/; GLUCOSE 146 mg/dL (70-99); UREA NITROGEN (BUN) 44 mg/dL (9-23)
[2016-12-07 12:27] LABS: POINT-OF-CARE METER ID UU14162636
[2016-12-07 15:49] LABS: IRON 18 MCG/DL (35-150)
[2016-12-07 16:37] LABS: MCH 27.2 PG (29.0-34.0); MCHC 31.6 G/DL (30.0-36.0); MCV 86.3 FL (86-99); MEAN PLAT.VOLUME 11.8 uM^3 (9.0-12.4); PLATELET COUNT 193 K/uL (156-360); RBC DIS.WIDTH-CV 15.4 % (11.8-14.6); RED BLOOD COUNT 3.71 M/uL (4.00-5.50); WHITE BLOOD COUNT 9.1 K/uL (4.1-10.2)
[2016-12-07 16:50] LABS: POINT-OF-CARE METER ID UU14162636
[2016-12-07 16:52] LABS: PROTHROMBIN TIME 10.6 (9.2-11.2)
[2016-12-07 17:15] LABS: TROP-I INTERPRETATION POSITIVE; TROPONIN-I 21.51 ng/mL (0.0-0.30)
[2016-12-07 19:01] LABS: ADD MIUA? YES; BILIRUBIN NEGATIVE; BLOOD NEGATIVE; COLOR YELLOW ((YELLOW)); GLUCOSE (STRIP) NEGATIVE; KETONES NEGATIVE; LEUKOCYTES NEGATIVE; NITRITE NEGATIVE; PROTEIN (STRIP) 100; SPECIFIC GRAVITY 1.015 (1.000-1.030); UROBILINOGEN 0.2 MG/DL (0.2-1.0)
[2016-12-07 19:39] LABS: BACTERIA NONE SEEN /HPF; EPITHELIAL CELLS RARE /HPF; HYALINE CASTS 0-5 /LPF; MUCUS TRACE /LPF; RED BLOOD CELLS 0-5 /HPF (0-5); UCUL ADDED? NO; WHITE BLOOD CELLS 0-5 /HPF (0-5)
[2016-12-07 22:46] LABS: POINT-OF-CARE METER ID UU13113731; POINT-OF-CARE USER ID LABHNS84
[2016-12-08] VITALS (10 sets, daily range): BP systolic 97–166; BP diastolic 53–88
[2016-12-08 06:32] LABS: ANION GAP 9 MEQ/L (2-14); CHLORIDE 105 MEQ/L (99-109); GFR ESTIMATE (CALCULATED) 26 mL/min/; POTASSIUM 4.7 MEQ/L (3.7-5.4); SAMPLE HEMOLYSIS CHECK 0; SAMPLE ICTERIC CHECK 0; SAMPLE LIPEMIA CHECK 0; SODIUM 138 MEQ/L (136-147); UREA NITROGEN (BUN) 46 mg/dL (9-23)
[2016-12-08 06:34] LABS: GLUCOSE 73 mg/dL (70-99)
[2016-12-08 06:36] LABS: TROP-I INTERPRETATION POSITIVE; TROPONIN-I 13.98 ng/mL (0.0-0.30)
[2016-12-08 08:37] LABS: INTACT PARATHYROID HORMONE 115 pg/mL (10-69)
[2016-12-08 09:07] LABS: POINT-OF-CARE METER ID UU13113731
[2016-12-08 11:46] LABS: POINT-OF-CARE METER ID UU14174217
[2016-12-08 17:10] LABS: POINT-OF-CARE METER ID UU14162636
[2016-12-09] VITALS (10 sets, daily range): BP systolic 117–192; BP diastolic 58–94
[2016-12-09 03:14] LABS: CHLORIDE 110 mEq/L (99-109); POTASSIUM 4.7 mEq/L (3.7-5.4); SODIUM 140 mEq/L (136-147)
[2016-12-09 03:16] LABS: GLUCOSE 80 mg/dL (70-99)
[2016-12-09 03:17] LABS: ANION GAP 7 MEQ/L (2-14)
[2016-12-09 03:20] LABS: GFR ESTIMATE (CALCULATED) 22 mL/min/
[2016-12-09 03:21] LABS: UREA NITROGEN (BUN) 53 mg/dL (9-23)
[2016-12-09 07:50] LABS: POINT-OF-CARE METER ID UU13113698; POINT-OF-CARE USER ID ENVKC36
[2016-12-09 11:32] LABS: POINT-OF-CARE METER ID UU13113781; POINT-OF-CARE USER ID ENVKC36
[2016-12-09 16:22] LABS: POINT-OF-CARE METER ID UU13113781; POINT-OF-CARE USER ID ENVKC36
[2016-12-09 20:59] LABS: POINT-OF-CARE METER ID UU13113781
[2016-12-10] VITALS (11 sets, daily range): BP systolic 109–192; BP diastolic 54–91
[2016-12-10 07:09] LABS: HEMATOCRIT 22.9 % (38.0-50.0); MCH 27.1 PG (29.0-34.0); MCHC 32.3 G/DL (30.0-36.0); MCV 83.9 FL (86-99); MEAN PLAT.VOLUME 12.2 uM^3 (9.0-12.4); PLATELET COUNT 161 K/uL (156-360); RBC DIS.WIDTH-CV 14.6 % (11.8-14.6); RBC DIS.WIDTH-SD 44.8 % (39-53)
[2016-12-10 07:10] LABS: RED BLOOD COUNT 2.73 M/uL (4.00-5.50)
[2016-12-10 07:20] LABS: ANION GAP 9 MEQ/L (2-14); CHLORIDE 108 MEQ/L (99-109); GFR ESTIMATE (CALCULATED) 29 mL/min/; POTASSIUM 4.6 MEQ/L (3.7-5.4); SAMPLE HEMOLYSIS CHECK 0; SAMPLE ICTERIC CHECK 0; SAMPLE LIPEMIA CHECK 0; SODIUM 140 MEQ/L (136-147); UREA NITROGEN (BUN) 45 mg/dL (9-23)
[2016-12-10 07:37] LABS: GLUCOSE 116 mg/dL (70-99)
[2016-12-10 08:07] LABS: POINT-OF-CARE METER ID UU13113781; POINT-OF-CARE USER ID NUTSLF44
[2016-12-10 11:46] LABS: POINT-OF-CARE USER ID NUTSLF44
[2016-12-10 15:56] LABS: HEMATOCRIT 24.3 % (38.0-50.0); MCV 84.4 FL (86-99)
[2016-12-10 16:34] LABS: POINT-OF-CARE METER ID UU13113698; POINT-OF-CARE USER ID NUTSLF44
[2016-12-11] VITALS (9 sets, daily range): BP systolic 136–208; BP diastolic 56–103
[2016-12-11 05:53] LABS: ANION GAP 8 MEQ/L (2-14); CHLORIDE 108 MEQ/L (99-109); GFR ESTIMATE (CALCULATED) 27 mL/min/; GLUCOSE 127 mg/dL (70-99); POTASSIUM 4.8 MEQ/L (3.7-5.4); SAMPLE HEMOLYSIS CHECK 0; SAMPLE ICTERIC CHECK 0; SAMPLE LIPEMIA CHECK 0; SODIUM 137 MEQ/L (136-147); UREA NITROGEN (BUN) 42 mg/dL (9-23)
[2016-12-11 07:38] LABS: POINT-OF-CARE METER ID UU13113781; POINT-OF-CARE USER ID ENVKC36
[2016-12-11 07:59] LABS: HEMATOCRIT 30.8 % (38.0-50.0); MCH 28.2 PG (29.0-34.0); MCHC 33.4 G/DL (30.0-36.0); MCV 84.4 FL (86-99); MEAN PLAT.VOLUME 11.5 uM^3 (9.0-12.4); PLATELET COUNT 160 K/uL (156-360); RBC DIS.WIDTH-CV 14.2 % (11.8-14.6); RBC DIS.WIDTH-SD 44.2 % (39-53); WHITE BLOOD COUNT 4.1 K/uL (4.1-10.2)
[2016-12-11 08:01] LABS: RED BLOOD COUNT 3.65 M/uL (4.00-5.50)
[2016-12-11 11:16] LABS: POINT-OF-CARE METER ID UU13113698; POINT-OF-CARE USER ID ENVKC36
[2016-12-15] MEDS ORDERED: MIRALAX255 GM PO (19:46)
[2016-12-15] MEDS ORDERED: BACLOFEN10 MG PO (19:46)
== END 2016-12-11 14:25 | disposition home health service (06) | DRG 682 ==
LOC: EME 17:58 → EDOF 20:45 → 4WEST 20:45 → 4EAST 12-09 03:54
PROVIDERS: Emergency Medicine; Internal Medicine; Internal Medicine Cardiovascular Disease
PROC: 30233N1 Transfusion of Nonautologous Red Blood Cells into Peripheral Vein, Percutaneous Approach (ICD-10-PCS; principal; 2016-12-10)
DX: N17.9 Acute kidney failure, unspecified (principal); I21.4 Non-ST elevation (NSTEMI) myocardial infarction; E87.2 Acidosis; I12.0 Hypertensive chronic kidney disease with stage 5 chronic kidney disease or end stage renal disease; N25.81 Secondary hyperparathyroidism of renal origin; E87.5 Hyperkalemia; D63.1 Anemia in chronic kidney disease; D50.9 Iron deficiency anemia, unspecified; E11.21 Type 2 diabetes mellitus with diabetic nephropathy; E11.22 Type 2 diabetes mellitus with diabetic chronic kidney disease; E78.5 Hyperlipidemia, unspecified; E55.9 Vitamin D deficiency, unspecified; I12.9 Hypertensive chronic kidney disease with stage 1 through stage 4 chronic kidney disease, or unspecified chronic kidney disease; Z95.1 Presence of aortocoronary bypass graft; Z86.73 Personal history of transient ischemic attack (TIA), and cerebral infarction without residual deficits; Z82.49 Family history of ischemic heart disease and other diseases of the circulatory system; Z79.4 Long term (current) use of insulin; Z91.19 Patient's noncompliance with other medical treatment and regimen; I25.10 Atherosclerotic heart disease of native coronary artery without angina pectoris; G93.89 Other specified disorders of brain; N18.5 Chronic kidney disease, stage 5
CPT/HCPCS: 70450; 70486; 70551; 71020; 80048; 80069; 81003; 82306; 82550; 82553; 82803; 82948; 83540; 83605; 83880; 83970; 84466; 84484; 85014; 85018; 85027; 85610; 85730; 86900; 86901; 86920; 87040; 87070; 87075; 87106; 87205; 87641; 93005; 93306; 94644; 99281; 99285; J0881; J1756; J1815; J2405; J7030; J7050; P9016

== ENCOUNTER 2017-01-01 14:30 | Inpatient (IN) | payer OTHER ==
[~2017-01-01] VITALS: Ht 170.2 cm; Wt 75.0 kg
[~2017-01-01 14:30] MED LIST changes: +APRESOLINE25 MG PO; +BACLOFEN10 MG PO; +CATAPRES0.1 MG PO; +LEXAPRO10 MG PO; +LO-DOSE ASPIRIN81 M1 PO; +MIRALAX255 GM PO; +NORVASC10 MG PO; +ONDANSETRON4 MG/2 ML PO; +PLAVIX75 MG PO; +ROCALTROL0.25 MCG PO; +TEGRETOL200 MG PO; +TYLENOL EXTRA500 MG PO; +VANCOCIN 250 M250 MG PO
[2017-01-01 18:19] LABS: ADD MIUA? YES; BILIRUBIN NEGATIVE; BLOOD NEGATIVE; COLOR AMBER ((YELLOW)); GLUCOSE (STRIP) NEGATIVE; KETONES NEGATIVE; LEUKOCYTES NEGATIVE; NITRITE NEGATIVE; PROTEIN (STRIP) >=500; SPECIFIC GRAVITY 1.014 (1.000-1.030); UROBILINOGEN 0.2 MG/DL (0.2-1.0)
[2017-01-01 18:27] LABS: C DIFF TOXIN ND (NEGATIVE)
[2017-01-01 18:38] LABS: RED BLOOD CELLS 0-5 /HPF (0-5); WHITE BLOOD CELLS 0-5 /HPF (0-5)
[2017-01-01 18:39] LABS: AMORPHOUS URATES CRYSTALS 2+; BACTERIA 1+ /HPF; CASTS PRESENT /LPF; CRYSTALS PRESENT; EPITHELIAL CELLS RARE /HPF; FINE GRANULAR CASTS 0-5 /LPF; HYALINE CASTS 0-5 /LPF; MUCUS RARE /LPF; UCUL ADDED? NO
[2017-01-01 18:52] LABS: EOSINOPHIL (%) 0.2 % (0-5); IMMATURE GRANULOCYTE (%) 0.4 % (0.0-0.7); IMMATURE GRANULOCYTE COUNT 0.1 K/uL; INSTRUMENT ABS NEUTROPHIL CT 11.3 K/uL; LYMPHOCYTE COUNT 0.8 K/uL (1.0-2.8); MCH 27.3 PG (29.0-34.0); MCHC 31.6 G/DL (30.0-36.0); MCV 86.4 FL (86-99); MEAN PLAT.VOLUME 11.5 uM^3 (9.0-12.4); MONOCYTE (%) 3.9 % (3-12); MONOCYTE COUNT 0.5 K/uL (0-0.8); NEUTROPHIL (%) 88.7 % (45-76); NEUTROPHIL COUNT 11.3 K/uL (1.8-6.4); PLATELET COUNT 209 K/uL (156-360); RBC DIS.WIDTH-CV 15.2 % (11.8-14.6); RBC DIS.WIDTH-SD 48.1 % (39-53); WHITE BLOOD COUNT 12.8 K/uL (4.1-10.2)
[2017-01-01 19:03] LABS: INTER. NORMALIZED RATIO 1.2; PROTHROMBIN TIME 13.6 SEC (10.2-12.9)
[2017-01-01 19:06] LABS: PTT 34.5 SEC (25-37)
[2017-01-01 19:12] LABS: CHLORIDE 109 mEq/L (99-109); SODIUM 141 mEq/L (136-147); TROP-I INTERPRETATION NEGATIVE; TROPONIN-I 0.06 ng/mL (0.0-0.30)
[2017-01-01 19:14] LABS: GLUCOSE 76 mg/dL (70-99)
[2017-01-01 19:16] LABS: ANION GAP 15 MEQ/L (2-14); POTASSIUM 4.7 mEq/L (3.7-5.4)
[2017-01-01 19:18] LABS: GFR ESTIMATE (CALCULATED) 18 mL/min/
[2017-01-01 19:19] LABS: UREA NITROGEN (BUN) 61 mg/dL (9-23)
[2017-01-01] MEDS ORDERED: LOPRESSOR25 MG PO (20:44)
[2017-01-01 22:17] VITALS: BP 189/85
[2017-01-02] VITALS (7 sets, daily range): BP systolic 102–174; BP diastolic 62–83
[2017-01-02 07:09] LABS: HEMATOCRIT 30.4 % (38.0-50.0); MCH 27.4 PG (29.0-34.0); MCHC 31.6 G/DL (30.0-36.0); MCV 86.9 FL (86-99); MEAN PLAT.VOLUME 11.8 uM^3 (9.0-12.4); PLATELET COUNT 196 K/uL (156-360); RBC DIS.WIDTH-CV 15.3 % (11.8-14.6); RBC DIS.WIDTH-SD 48.7 % (39-53); WHITE BLOOD COUNT 10.6 K/uL (4.1-10.2)
[2017-01-02 07:22] LABS: ALKALINE PHOSPHATASE 47 IU/L (3-129); ANION GAP 10 MEQ/L (2-14); CHLORIDE 109 MEQ/L (99-109); GFR ESTIMATE (CALCULATED) 19 mL/min/; GLUCOSE 93 mg/dL (70-99); POTASSIUM 4.7 MEQ/L (3.7-5.4); SAMPLE HEMOLYSIS CHECK 0; SAMPLE ICTERIC CHECK 0; SAMPLE LIPEMIA CHECK 0; SODIUM 139 MEQ/L (136-147); TOTAL BILIRUBIN 0.3 MG/DL (0.0-1.0); UREA NITROGEN (BUN) 54 mg/dL (9-23)
[2017-01-02 11:51] LABS: POINT-OF-CARE METER ID UU14208750
[2017-01-02 16:44] LABS: POINT-OF-CARE METER ID UU14208750
[2017-01-02 21:44] LABS: POINT-OF-CARE METER ID UU14208750
[2017-01-03 03:31] VITALS: BP 131/72
[2017-01-03 06:39] LABS: POINT-OF-CARE METER ID UU14208750
[2017-01-03 07:19] LABS: ANION GAP 12 MEQ/L (2-14); CHLORIDE 109 MEQ/L (99-109); GFR ESTIMATE (CALCULATED) 19 mL/min/; GLUCOSE 92 mg/dL (70-99); POTASSIUM 4.5 MEQ/L (3.7-5.4); SAMPLE HEMOLYSIS CHECK 0; SAMPLE ICTERIC CHECK 0; SAMPLE LIPEMIA CHECK 0; SODIUM 137 MEQ/L (136-147); UREA NITROGEN (BUN) 53 mg/dL (9-23)
[2017-01-03 08:30] VITALS: BP 138/68
[2017-01-03 11:48] LABS: POINT-OF-CARE METER ID UU14208750
[2017-01-03 15:50] VITALS: BP 122/78
[2017-01-03 16:24] LABS: POINT-OF-CARE METER ID UU14208750
[2017-01-03 18:20] LABS: C DIFF TOXIN NEGATIVE (NEGATIVE)
[2017-01-03 18:22] LABS: PROBE CHECK PASS; SPECIMEN PROCESSING CONTROL PASS
[2017-01-03 22:07] VITALS: BP 176/85
[2017-01-04 00:33] VITALS: BP 171/85
[2017-01-04 04:11] VITALS: BP 163/78
[2017-01-04 05:34] LABS: HEMATOCRIT 25.8 % (38.0-50.0); MCH 28.3 PG (29.0-34.0); MCHC 33.7 G/DL (30.0-36.0); MEAN PLAT.VOLUME 11.8 uM^3 (9.0-12.4); PLATELET COUNT 203 K/uL (156-360); RBC DIS.WIDTH-SD 46.3 % (39-53); RED BLOOD COUNT 3.07 M/uL (4.00-5.50); WHITE BLOOD COUNT 4.2 K/uL (4.1-10.2)
[2017-01-04 05:58] LABS: ANION GAP 10 MEQ/L (2-14); CHLORIDE 110 MEQ/L (99-109); GFR ESTIMATE (CALCULATED) 22 mL/min/; GLUCOSE 127 mg/dL (70-99); SAMPLE HEMOLYSIS CHECK 0; SAMPLE ICTERIC CHECK 0; SAMPLE LIPEMIA CHECK 0; SODIUM 138 MEQ/L (136-147); UREA NITROGEN (BUN) 43 mg/dL (9-23)
[2017-01-04 07:15] LABS: POINT-OF-CARE METER ID UU14208750
[2017-01-04 07:20] VITALS: BP 186/95
[2017-01-04 10:36] LABS: IRON 54 MCG/DL (35-150)
[2017-01-04 12:09] LABS: POINT-OF-CARE USER ID PUTDRM
[2017-01-04 14:59] VITALS: BP 185/85
[2017-01-04 21:14] LABS: POINT-OF-CARE METER ID UU14208750
[2017-01-04 23:25] VITALS: BP 169/77
[2017-01-05 05:45] LABS: HEMATOCRIT 24.6 % (38.0-50.0); MCH 27.5 PG (29.0-34.0); MCHC 32.9 G/DL (30.0-36.0); MCV 83.4 FL (86-99); MEAN PLAT.VOLUME 11.3 uM^3 (9.0-12.4); PLATELET COUNT 210 K/uL (156-360); RBC DIS.WIDTH-CV 15.2 % (11.8-14.6); RBC DIS.WIDTH-SD 46.7 % (39-53); RED BLOOD COUNT 2.95 M/uL (4.00-5.50); WHITE BLOOD COUNT 3.5 K/uL (4.1-10.2)
[2017-01-05 06:16] LABS: ANION GAP 10 MEQ/L (2-14); CHLORIDE 112 MEQ/L (99-109); GFR ESTIMATE (CALCULATED) 27 mL/min/; GLUCOSE 102 mg/dL (70-99); POTASSIUM 3.8 MEQ/L (3.7-5.4); SAMPLE HEMOLYSIS CHECK 0; SAMPLE ICTERIC CHECK 0; SAMPLE LIPEMIA CHECK 0; SODIUM 141 MEQ/L (136-147); UREA NITROGEN (BUN) 34 mg/dL (9-23)
[2017-01-05 07:30] VITALS: BP 127/71
[2017-01-05 11:51] LABS: POINT-OF-CARE METER ID UU14208750
[2017-01-05] MEDS ORDERED: FAMOTIDINE20 MG PO (14:24)
[2017-01-05] MEDS ORDERED: GLUCOTROL10 MG PO (14:25)
[2017-01-05] MEDS ORDERED: NOVOLOG PE100 UNITS/ SC (14:26)
[2017-01-05] MEDS ORDERED: ONDANSETRON4 MG/2 ML PO (14:27)
[2017-01-05] MEDS ORDERED: NABI650T PO (14:31)
[2017-01-05] MEDS ORDERED: ZOLPIDEM TARTRAT5 MG PO (14:35)
[2017-01-05] MEDS ORDERED: ANECREAM30 GM TP (14:35)
[2017-01-05] MEDS ORDERED: LYRICA50 MG PO (14:35)
[2017-01-05] MEDS ORDERED: VANCOCIN 250 M250 MG PO (14:35)
[2017-01-05] MEDS ORDERED: ENDOCET 5-3251 EACH PO (14:35)
[2017-01-05 16:27] LABS: POINT-OF-CARE METER ID UU14208750
[2017-01-05 16:43] VITALS: BP 160/76
== END 2017-01-05 17:22 | DRG 392 ==
LOC: EME 14:30 → 2EAST 20:10 → EDOF 20:10 → ENRESERV 20:11 → 2EAST 21:54
PROVIDERS: Emergency Medicine; Internal Medicine; Internal Medicine Nephrology
DX: K52.9 Noninfective gastroenteritis and colitis, unspecified (principal); N17.9 Acute kidney failure, unspecified; E87.2 Acidosis; N18.4 Chronic kidney disease, stage 4 (severe); E11.21 Type 2 diabetes mellitus with diabetic nephropathy; D50.9 Iron deficiency anemia, unspecified; E11.22 Type 2 diabetes mellitus with diabetic chronic kidney disease; E53.8 Deficiency of other specified B group vitamins; E55.9 Vitamin D deficiency, unspecified; E78.5 Hyperlipidemia, unspecified; E86.0 Dehydration; E87.5 Hyperkalemia; F32.9 Major depressive disorder, single episode, unspecified; G50.0 Trigeminal neuralgia; I12.9 Hypertensive chronic kidney disease with stage 1 through stage 4 chronic kidney disease, or unspecified chronic kidney disease; I25.10 Atherosclerotic heart disease of native coronary artery without angina pectoris; I25.2 Old myocardial infarction; N25.81 Secondary hyperparathyroidism of renal origin; N25.89 Other disorders resulting from impaired renal tubular function; Z79.4 Long term (current) use of insulin; Z82.49 Family history of ischemic heart disease and other diseases of the circulatory system; Z83.3 Family history of diabetes mellitus; Z86.19 Personal history of other infectious and parasitic diseases; Z95.1 Presence of aortocoronary bypass graft; I69.334 Monoplegia of upper limb following cerebral infarction affecting left non-dominant side; R26.9 Unspecified abnormalities of gait and mobility; I69.398 Other sequelae of cerebral infarction; R53.1 Weakness; R41.0 Disorientation, unspecified; G93.89 Other specified disorders of brain
CPT/HCPCS: 36415; 70450; 71010; 80048; 80053; 80061; 80069; 81003; 82607; 82948; 83036; 83540; 83735; 83970; 84466; 84484; 84550; 85025; 85027; 85610; 85730; 87040; 87493; 93005; 99281; 99285; C9113; J1170; J1756; J1815; J1956; J7030; J7050

== ENCOUNTER 2017-04-30 15:34 | Inpatient (IN) | payer OTHER ==
[~2017-04-30] VITALS: Ht 170.2 cm; Wt 80.4 kg
[~2017-04-30 15:34] MED LIST changes: +ANECREAM30 GM TP; +FAMOTIDINE20 MG PO; +ZOLPIDEM TARTRAT5 MG PO
[2017-04-30 17:01] LABS: MCV 90.4 FL (86-99); MEAN PLAT.VOLUME 13.2 uM^3 (9.0-12.4); PLATELET COUNT 187 K/uL (156-360); RBC DIS.WIDTH-CV 14.6 % (11.8-14.6); RBC DIS.WIDTH-SD 48.8 % (39-53); RED BLOOD COUNT 3.32 M/uL (4.00-5.50); WHITE BLOOD COUNT 6.3 K/uL (4.1-10.2)
[2017-04-30 17:09] LABS: CHLORIDE 117 mEq/L (99-109); SODIUM 139 mEq/L (136-147)
[2017-04-30 17:11] LABS: GLUCOSE 119 mg/dL (70-99)
[2017-04-30 17:12] LABS: ANION GAP 11 MEQ/L (2-14)
[2017-04-30 17:14] LABS: GFR ESTIMATE (CALCULATED) 14 mL/min/
[2017-04-30 17:15] LABS: UREA NITROGEN (BUN) 94 mg/dL (9-23)
[2017-04-30 17:17] LABS: POTASSIUM 6.3 mEq/L (3.7-5.4)
[2017-04-30] MEDS ORDERED: DESOXIMETASONE15 G1 TP (21:59)
[2017-04-30] MEDS ORDERED: ATORVASTATIN CA20 MG PO (22:02)
[2017-04-30] MEDS ORDERED: ESCITALOPRAM OX10 MG PO (22:04)
[2017-04-30] MEDS ORDERED: GLIPIZIDE5 MG PO (22:05)
[2017-04-30] MEDS ORDERED: CLOPIDOGREL75 MG PO (22:07)
[2017-04-30] MEDS ORDERED: LYRICA75 MG PO (22:08)
[2017-04-30] MEDS ORDERED: PROCRIT40000 UNI1 SC (22:09)
[2017-04-30] MEDS ORDERED: METOPROLOL SUCC25 MG PO (22:11)
[2017-04-30] MEDS ORDERED: ERGOCALCIF50000 UNIT PO (22:14)
[2017-04-30] MEDS ORDERED: FEOSOL325 MG PO (22:15)
[2017-05-01] VITALS (7 sets, daily range): BP systolic 131–182; BP diastolic 63–84
[2017-05-01 06:16] LABS: POINT-OF-CARE METER ID UU13113725
[2017-05-01 06:31] LABS: HEMATOCRIT 24.7 % (38.0-50.0); MCH 28.1 PG (29.0-34.0); MCHC 31.6 G/DL (30.0-36.0); MCV 88.8 FL (86-99); MEAN PLAT.VOLUME 13.1 uM^3 (9.0-12.4); PLATELET COUNT 163 K/uL (156-360); RBC DIS.WIDTH-CV 14.6 % (11.8-14.6); RED BLOOD COUNT 2.78 M/uL (4.00-5.50); WHITE BLOOD COUNT 5.6 K/uL (4.1-10.2)
[2017-05-01 07:13] LABS: ALKALINE PHOSPHATASE 53 IU/L (3-129); ANION GAP 12 MEQ/L (2-14); CHLORIDE 118 MEQ/L (99-109); GFR ESTIMATE (CALCULATED) 16 mL/min/; GLUCOSE 163 mg/dL (70-99); SAMPLE HEMOLYSIS CHECK 0; SAMPLE ICTERIC CHECK 0; SAMPLE LIPEMIA CHECK 0; SODIUM 145 MEQ/L (136-147); TOTAL BILIRUBIN 0.2 MG/DL (0.0-1.0); UREA NITROGEN (BUN) 88 mg/dL (9-23)
[2017-05-01 07:21] LABS: POTASSIUM 4.6 MEQ/L (3.7-5.4)
[2017-05-01 12:05] LABS: POINT-OF-CARE METER ID UU13113725
[2017-05-01 14:57] LABS: MCH 28.8 PG (29.0-34.0); MCHC 32.4 G/DL (30.0-36.0); MEAN PLAT.VOLUME 13.3 uM^3 (9.0-12.4); PLATELET COUNT 164 K/uL (156-360); RBC DIS.WIDTH-CV 14.7 % (11.8-14.6); RBC DIS.WIDTH-SD 48.1 % (39-53); RED BLOOD COUNT 2.81 M/uL (4.00-5.50); WHITE BLOOD COUNT 4.9 K/uL (4.1-10.2)
[2017-05-01 15:48] LABS: ANION GAP 10 MEQ/L (2-14); CHLORIDE 113 MEQ/L (99-109); GFR ESTIMATE (CALCULATED) 17 mL/min/; GLUCOSE 150 mg/dL (70-99); POTASSIUM 4.8 MEQ/L (3.7-5.4); SAMPLE HEMOLYSIS CHECK 0; SAMPLE ICTERIC CHECK 0; SAMPLE LIPEMIA CHECK 0; SODIUM 138 MEQ/L (136-147); UREA NITROGEN (BUN) 80 mg/dL (9-23)
[2017-05-01 16:26] LABS: POINT-OF-CARE METER ID UU13113725
[2017-05-01 21:06] LABS: POINT-OF-CARE METER ID UU13113725
[2017-05-02 03:31] VITALS: BP 120/56
[2017-05-02 05:48] LABS: POINT-OF-CARE METER ID UU13113725
[2017-05-02 06:04] LABS: HEMATOCRIT 23.9 % (38.0-50.0); MCH 28.7 PG (29.0-34.0); MCHC 32.6 G/DL (30.0-36.0); MCV 87.9 FL (86-99); MEAN PLAT.VOLUME 13.3 uM^3 (9.0-12.4); PLATELET COUNT 165 K/uL (156-360); RBC DIS.WIDTH-CV 14.4 % (11.8-14.6); RBC DIS.WIDTH-SD 46.3 % (39-53); RED BLOOD COUNT 2.72 M/uL (4.00-5.50); WHITE BLOOD COUNT 5.2 K/uL (4.1-10.2)
[2017-05-02 06:21] LABS: ANION GAP 12 MEQ/L (2-14); CHLORIDE 113 MEQ/L (99-109); GFR ESTIMATE (CALCULATED) 17 mL/min/; GLUCOSE 122 mg/dL (70-99); POTASSIUM 4.1 MEQ/L (3.7-5.4); SAMPLE HEMOLYSIS CHECK 0; SAMPLE ICTERIC CHECK 0; SAMPLE LIPEMIA CHECK 0; SODIUM 142 MEQ/L (136-147); UREA NITROGEN (BUN) 76 mg/dL (9-23)
[2017-05-02 07:45] VITALS: BP 166/79
[2017-05-02 11:40] LABS: POINT-OF-CARE METER ID UU13113774
[2017-05-02 12:04] VITALS: BP 170/77
[2017-05-02 15:40] VITALS: BP 174/81
[2017-05-02 16:42] LABS: POINT-OF-CARE METER ID UU13113774
[2017-05-02 20:05] VITALS: BP 170/84
[2017-05-02 21:13] LABS: POINT-OF-CARE METER ID UU13113725
[2017-05-02 23:44] VITALS: BP 168/86
[2017-05-03 03:52] VITALS: BP 168/70
[2017-05-03 03:59] VITALS: BP 140/70
[2017-05-03 06:07] LABS: POINT-OF-CARE METER ID UU13113725
[2017-05-03 06:25] LABS: ANION GAP 12 MEQ/L (2-14); CHLORIDE 114 MEQ/L (99-109); GFR ESTIMATE (CALCULATED) 17 mL/min/; GLUCOSE 122 mg/dL (70-99); POTASSIUM 3.8 MEQ/L (3.7-5.4); SAMPLE HEMOLYSIS CHECK 0; SAMPLE ICTERIC CHECK 0; SAMPLE LIPEMIA CHECK 0; SODIUM 143 MEQ/L (136-147); UREA NITROGEN (BUN) 69 mg/dL (9-23)
[2017-05-03 07:16] VITALS: BP 161/84
[2017-05-03 11:03] LABS: POINT-OF-CARE METER ID UU13113774
[2017-05-03 11:33] VITALS: BP 158/78
[2017-05-03 16:08] LABS: POINT-OF-CARE METER ID UU13113774
[2017-05-03] MEDS ORDERED: LABETALOL HCL100 MG PO (16:44)
[2017-05-03] MEDS ORDERED: NIFEDIPINE ER30 MG PO (16:44)
[2017-05-03 17:04] VITALS: BP 163/77
== END 2017-05-03 21:28 | disposition home or self-care (01) | DRG 377 ==
LOC: EME 15:34 → EDOF 20:10 → 5EAST 20:10 → ENRESERV 20:17 → 5EAST 05-01 00:28
PROVIDERS: Emergency Medicine; Internal Medicine; Internal Medicine Nephrology
DX: K92.2 Gastrointestinal hemorrhage, unspecified (principal); N17.0 Acute kidney failure with tubular necrosis; E11.22 Type 2 diabetes mellitus with diabetic chronic kidney disease; E87.5 Hyperkalemia; E87.2 Acidosis; I12.9 Hypertensive chronic kidney disease with stage 1 through stage 4 chronic kidney disease, or unspecified chronic kidney disease; N18.4 Chronic kidney disease, stage 4 (severe); I25.10 Atherosclerotic heart disease of native coronary artery without angina pectoris; E78.5 Hyperlipidemia, unspecified; D63.1 Anemia in chronic kidney disease; E55.9 Vitamin D deficiency, unspecified; G50.0 Trigeminal neuralgia; Z95.1 Presence of aortocoronary bypass graft; E53.8 Deficiency of other specified B group vitamins; Z79.02 Long term (current) use of antithrombotics/antiplatelets; Z79.82 Long term (current) use of aspirin; I25.2 Old myocardial infarction; Z86.19 Personal history of other infectious and parasitic diseases; E11.21 Type 2 diabetes mellitus with diabetic nephropathy; F32.9 Major depressive disorder, single episode, unspecified; F41.9 Anxiety disorder, unspecified; I69.354 Hemiplegia and hemiparesis following cerebral infarction affecting left non-dominant side; E11.40 Type 2 diabetes mellitus with diabetic neuropathy, unspecified; N25.81 Secondary hyperparathyroidism of renal origin; E87.8 Other disorders of electrolyte and fluid balance, not elsewhere classified
CPT/HCPCS: 36415; 80048; 80048 91; 80053; 80069; 82272; 82948; 85027; 93005; 94640; 99281; 99285; J1815; J7030; J7070

== ENCOUNTER 2017-07-29 18:51 | Inpatient (IN) | payer OTHER ==
[~2017-07-29] VITALS: Ht 172.7 cm; Wt 82.5 kg
[2017-07-29] VITALS (11 sets, daily range): BP systolic 104–235; BP diastolic 68–125
[~2017-07-29 18:51] MED LIST changes: +DESOXIMETASONE15 G1 TP; +FEOSOL325 MG PO; +LABETALOL HCL100 MG PO; +LASIX20 MG PO; +LYRICA75 MG PO; +METOPROLOL SUCC25 MG PO; +NIFEDIPINE ER30 MG PO; +PROCRIT40000 UNI1 SC; +TYLENOL REGULA325 MG PO
[2017-07-29 19:37] LABS: INTER. NORMALIZED RATIO 1.2
[2017-07-29 19:43] LABS: BASOPHIL (%) 0.3 % (0-1); EOSINOPHIL (%) 1.8 % (0-5); EOSINOPHIL COUNT 0.2 K/uL (0-0.3); HEMATOCRIT 19.1 % (38.0-50.0); IMMATURE GRANULOCYTE (%) 1.4 % (0.0-0.7); LYMPHOCYTE (%) 44.7 % (15-42); LYMPHOCYTE COUNT 5.3 K/uL (1.0-2.8); MCH 26.9 PG (29.0-34.0); MCHC 29.3 G/DL (30.0-36.0); MCV 91.8 FL (86-99); MONOCYTE (%) 5.2 % (3-12); MONOCYTE COUNT 0.6 K/uL (0-0.8); NEUTROPHIL (%) 46.6 % (45-76); NEUTROPHIL COUNT 5.5 K/uL (1.8-6.4); NRBC (%) 0.2 /100 WBC (0-0); RBC DIS.WIDTH-CV 15.9 % (11.8-14.6); RBC DIS.WIDTH-SD 51.8 % (39-53); WHITE BLOOD COUNT 11.8 K/uL (4.1-10.2)
[2017-07-29 19:46] LABS: RED BLOOD COUNT 2.08 M/uL (4.00-5.50)
[2017-07-29 19:47] LABS: HEMOGLOBIN 5.6 G/DL (12.5-16.6); PLATELET COUNT 278 K/uL (156-360)
[2017-07-29 19:53] LABS: TROP-I INTERPRETATION NEGATIVE; TROPONIN-I 0.13 ng/mL (0.0-0.30)
[2017-07-29 20:00] LABS: AMYLASE 68 IU/L (1-118); CHLORIDE 108 MEQ/L (99-109); CREATININE 4.2 MG/DL (0.6-1.3); GFR ESTIMATE (CALCULATED) 16 mL/min/ (58.99-99999); GLUCOSE 245 mg/dL (70-99); LIPASE 205 U/L (1.0-51.0); POTASSIUM 4.4 MEQ/L (3.7-5.4); SERUM ETHYL ALCOHOL < 10 mg/dL; SODIUM 142 MEQ/L (136-147)
[2017-07-29 20:01] LABS: UREA NITROGEN (BUN) 104 mg/dL (9-23)
[2017-07-29 20:50] LABS: APPEARANCE CLEAR ((CLEAR)); BILIRUBIN NEGATIVE; BLOOD NEGATIVE; COLOR YELLOW ((YELLOW)); GLUCOSE (STRIP) 50; KETONES NEGATIVE; LEUKOCYTES NEGATIVE; NITRITE NEGATIVE; PROTEIN (STRIP) 100; SPECIFIC GRAVITY 1.013 (1.000-1.030); UROBILINOGEN 0.2 MG/DL (0.2-1.0)
[2017-07-29 21:00] LABS: AMPHETAMINE NEGATIVE (500 ng/mL); BARBITURATES NEGATIVE (200 ng/mL); BENZODIAZEPINES NEGATIVE (150 ng/mL); BUPRENORPHINE NEGATIVE (10 ng/mL); COCAINE NEGATIVE (150 ng/mL); METHADONE NEGATIVE (200 ng/mL); METHAMPHETAMINE NEGATIVE (500 ng/mL); OPIATES (MORPHINE) NEGATIVE (100 ng/mL); OXYCODONE NEGATIVE (100 ng/mL); PHENCYCLIDINE NEGATIVE (25 ng/mL); PROPOXYPHENE NEGATIVE (300 ng/mL); THC CANNABINOIDS NEGATIVE (50 ng/mL); TRICYCLIC ANTIDEPRESSANTS NEGATIVE (300 ng/mL)
[2017-07-29 21:17] LABS: BACTERIA RARE /HPF; EPITHELIAL CELLS RARE /HPF; MUCUS TRACE /LPF; RED BLOOD CELLS 0-5 /HPF (0-5); UCUL ADDED? NO; WHITE BLOOD CELLS 0-5 /HPF (0-5)
[2017-07-29] MEDS ORDERED: ASPIR-LOW81 MG PO (22:02)
[2017-07-29] MEDS ORDERED: ADALAT CC 30 MG30 MG PO (22:03)
[2017-07-29] MEDS ORDERED: FUROSEMIDE80 MG PO (22:05)
[2017-07-29] MEDS ORDERED: CALCITRIOL0.25 MCG PO (22:05)
[2017-07-29] MEDS ORDERED: ESCITALOPRAM OX10 MG PO (22:06)
[2017-07-29] MEDS ORDERED: CLOPIDOGREL75 MG PO (22:10)
[2017-07-29] MEDS ORDERED: GLIPIZIDE5 MG PO (22:10)
[2017-07-29] MEDS ORDERED: APRESOLINE25 MG PO (22:10)
[2017-07-29] MEDS ORDERED: ATORVASTATIN CA20 MG PO (22:10)
[2017-07-29] MEDS ORDERED: NABI650T PO (22:11)
[2017-07-29] MEDS ORDERED: BEANO PO (22:17)
[2017-07-30] VITALS (33 sets, daily range): BP systolic 94–152; BP diastolic 55–94
[2017-07-30 01:10] LABS: BASE EXCESS -14.3 mEq/L (-3 to +3); BICARBONATE 12.4 mEq/L (22-26); CARBOXY HGB 0.8 % (0-5); COMMENTS - BLOOD GASES C+; DEVICE VENT; FI02 80 %; MECHANICAL RATE 20 resp/min; METHEMOGLOBIN 1.1 % (0-1.5); MODE A/C; PCO2 31 mm Hg (35-45); PEEP 10 CM/H20; PO2 113 mm Hg (80-100); SITE LR; TIDAL VOLUME 520 ML; TOTAL RESP RATE 20 resp/min; pH 7.21 (7.35-7.45)
[2017-07-30 01:53] LABS: HEMATOCRIT 35.6 % (38.0-50.0); MCH 28.5 PG (29.0-34.0); MCHC 31.7 G/DL (30.0-36.0); MCV 89.9 FL (86-99); NRBC (%) 0.3 /100 WBC (0-0); PLATELET COUNT 283 K/uL (156-360); RBC DIS.WIDTH-CV 14.7 % (11.8-14.6); RBC DIS.WIDTH-SD 47.7 % (39-53)
[2017-07-30 01:54] LABS: HEMOGLOBIN 11.3 G/DL (12.5-16.6); RED BLOOD COUNT 3.96 M/uL (4.00-5.50)
[2017-07-30 01:57] LABS: CHLORIDE 108 mEq/L (99-109); SODIUM 139 mEq/L (136-147)
[2017-07-30 01:58] LABS: MAGNESIUM 1.9 mg/dL (1.3-2.7)
[2017-07-30 02:02] LABS: PHOSPHORUS 7.7 mg/dL (2.5-4.9)
[2017-07-30 02:03] LABS: CREATININE 4.4 mg/dL (0.6-1.3); GFR ESTIMATE (CALCULATED) 15 mL/min/ (58.99-99999)
[2017-07-30 02:13] LABS: GLUCOSE 375 mg/dL (70-99); UREA NITROGEN (BUN) 110 mg/dL (9-23)
[2017-07-30 05:42] LABS: BICARBONATE 13.4 mEq/L (22-26); CARBOXY HGB 1.3 % (0-5); METHEMOGLOBIN 1.2 % (0-1.5); PCO2 32 mm Hg (35-45)
[2017-07-30 05:43] LABS: COMMENTS - BLOOD GASES C+; DEVICE VENT; FI02 60 %; MECHANICAL RATE 20 resp/min; MODE A/C; PEEP 10 CM/H20; PO2 81 mm Hg (80-100); SITE LR; TIDAL VOLUME 520 ML; TOTAL RESP RATE 20 resp/min; pH 7.23 (7.35-7.45)
[2017-07-30 09:20] LABS: BASOPHIL (%) 0.1 % (0-1); EOSINOPHIL (%) 0 % (0-5); HEMATOCRIT 32.6 % (38.0-50.0); HEMOGLOBIN 10.9 G/DL (12.5-16.6); IMMATURE GRANULOCYTE (%) 0.7 % (0.0-0.7); LYMPHOCYTE (%) 6.9 % (15-42); LYMPHOCYTE COUNT 0.9 K/uL (1.0-2.8); MCH 28.5 PG (29.0-34.0); MCHC 33.4 G/DL (30.0-36.0); MONOCYTE COUNT 0.7 K/uL (0-0.8); NEUTROPHIL (%) 87.3 % (45-76); NEUTROPHIL COUNT 11.8 K/uL (1.8-6.4); NRBC (%) 0.3 /100 WBC (0-0); PLATELET COUNT 272 K/uL (156-360); RBC DIS.WIDTH-CV 15.1 % (11.8-14.6); RBC DIS.WIDTH-SD 45.5 % (39-53); RED BLOOD COUNT 3.82 M/uL (4.00-5.50); WHITE BLOOD COUNT 13.6 K/uL (4.1-10.2)
[2017-07-30 09:21] LABS: MCV 85.3 FL (86-99)
[2017-07-30 09:57] LABS: TROP-I INTERPRETATION POSITIVE; TROPONIN-I 1.73 ng/mL (0.0-0.30)
[2017-07-30 10:19] LABS: CHLORIDE 110 MEQ/L (99-109); CREATININE 4.4 MG/DL (0.6-1.3); GFR ESTIMATE (CALCULATED) 15 mL/min/ (58.99-99999); GLUCOSE 366 mg/dL (70-99); POTASSIUM 6.1 MEQ/L (3.7-5.4); SODIUM 139 MEQ/L (136-147); UREA NITROGEN (BUN) 109 mg/dL (9-23)
[2017-07-30] MEDS ORDERED: LYRICA75 MG PO (10:20)
[2017-07-30 13:37] LABS: POTASSIUM 4.7 MEQ/L (3.7-5.4)
[2017-07-30 14:40] LABS: CHLORIDE 110 MEQ/L (99-109); CREATININE 4.5 MG/DL (0.6-1.3); GFR ESTIMATE (CALCULATED) 15 mL/min/ (58.99-99999); GLUCOSE 300 mg/dL (70-99); SODIUM 139 MEQ/L (136-147)
[2017-07-30 14:44] LABS: UREA NITROGEN (BUN) 107 mg/dL (9-23)
[2017-07-30 15:23] LABS: HEMOGLOBIN 9.5 G/DL (12.5-16.6)
[2017-07-30 15:38] LABS: TROP-I INTERPRETATION POSITIVE; TROPONIN-I 2.12 ng/mL (0.0-0.30)
[2017-07-30 23:48] LABS: HEMATOCRIT 30.5 % (38.0-50.0); HEMOGLOBIN 10.4 G/DL (12.5-16.6); MCV 84.5 FL (86-99)
[2017-07-30 23:58] LABS: CHLORIDE 112 mEq/L (99-109)
[2017-07-31] VITALS (25 sets, daily range): BP systolic 124–177; BP diastolic 77–95
[2017-07-31 00:04] LABS: CREATININE 4.8 mg/dL (0.6-1.3); GFR ESTIMATE (CALCULATED) 13 mL/min/ (58.99-99999)
[2017-07-31 00:10] LABS: TROP-I INTERPRETATION POSITIVE
[2017-07-31 00:20] LABS: GLUCOSE 54 mg/dL (70-99); SODIUM 147 mEq/L (136-147); UREA NITROGEN (BUN) 114 mg/dL (9-23)
[2017-07-31 00:23] LABS: TROPONIN-I 1.93 ng/mL (0.0-0.30)
[2017-07-31 06:17] LABS: TROP-I INTERPRETATION POSITIVE
[2017-07-31 06:31] LABS: BASOPHIL (%) 0.3 % (0-1); EOSINOPHIL (%) 0.8 % (0-5); EOSINOPHIL COUNT 0.1 K/uL (0-0.3); HEMATOCRIT 29.1 % (38.0-50.0); HEMOGLOBIN 9.7 G/DL (12.5-16.6); IMMATURE GRANULOCYTE (%) 0.9 % (0.0-0.7); LYMPHOCYTE (%) 17.2 % (15-42); LYMPHOCYTE COUNT 1.6 K/uL (1.0-2.8); MCH 28.3 PG (29.0-34.0); MCHC 33.3 G/DL (30.0-36.0); MCV 84.8 FL (86-99); MONOCYTE (%) 7.5 % (3-12); MONOCYTE COUNT 0.7 K/uL (0-0.8); NEUTROPHIL (%) 73.3 % (45-76); NEUTROPHIL COUNT 6.7 K/uL (1.8-6.4); NRBC (%) 0.4 /100 WBC (0-0); PLATELET COUNT 211 K/uL (156-360); RBC DIS.WIDTH-CV 15.7 % (11.8-14.6); RED BLOOD COUNT 3.43 M/uL (4.00-5.50); WHITE BLOOD COUNT 9.1 K/uL (4.1-10.2)
[2017-07-31 06:41] LABS: ALBUMIN 2.8 G/DL (3.2-4.8); ALKALINE PHOSPHATASE 65 IU/L (3-129); ALT (GPT) 125 IU/L (3-49); AST (GOT) 88 IU/L (2-34); CHLORIDE 107 MEQ/L (99-109); CREATININE 4.8 MG/DL (0.6-1.3); GFR ESTIMATE (CALCULATED) 13 mL/min/ (58.99-99999); MAGNESIUM 1.6 mg/dl (1.3-2.7); PHOSPHORUS 5.7 mg/dL (2.5-4.9); POTASSIUM 3.8 MEQ/L (3.7-5.4); SODIUM 147 MEQ/L (136-147); TOTAL BILIRUBIN 0.5 MG/DL (0.0-1.0); TOTAL PROTEIN 5.6 G/DL (6.4-8.3)
[2017-07-31 06:42] LABS: GLUCOSE 96 mg/dL (70-99); UREA NITROGEN (BUN) 106 mg/dL (9-23)
[2017-07-31 15:05] LABS: HEMATOCRIT 29.4 % (38.0-50.0); HEMOGLOBIN 9.6 G/DL (12.5-16.6); MCV 87.5 FL (86-99)
[2017-07-31 16:46] LABS: BASE EXCESS -8.7 mEq/L (-3 to +3); CARBOXY HGB 1.2 % (0-5); METHEMOGLOBIN 1.3 % (0-1.5); PO2 65 mm Hg (80-100)
[2017-07-31 16:47] LABS: COMMENTS - BLOOD GASES C+; PCO2 41 mm Hg (35-45); SITE RR; pH 7.25 (7.35-7.45)
[2017-07-31 16:48] LABS: DEVICE VENT; FI02 30 %; MODE TC; PEEP 5 CM/H20; TOTAL RESP RATE 17 resp/min
[2017-07-31 23:31] LABS: HEMATOCRIT 29.9 % (38.0-50.0); HEMOGLOBIN 9.5 G/DL (12.5-16.6); MCV 89.5 FL (86-99)
[2017-08-01] VITALS (18 sets, daily range): BP systolic 137–180; BP diastolic 78–107
[2017-08-01 06:49] LABS: HEMATOCRIT 29.2 % (38.0-50.0)
[2017-08-01 13:18] LABS: ALKALINE PHOSPHATASE 63 IU/L (3-129); ALT (GPT) 87 IU/L (3-49); CHLORIDE 111 MEQ/L (99-109); CREATININE 5.3 MG/DL (0.6-1.3); GFR ESTIMATE (CALCULATED) 12 mL/min/ (58.99-99999); GLUCOSE 117 mg/dL (70-99); MAGNESIUM 1.7 mg/dl (1.3-2.7); PHOSPHORUS 7.3 mg/dL (2.5-4.9); SODIUM 147 MEQ/L (136-147); TOTAL BILIRUBIN 0.5 MG/DL (0.0-1.0); TOTAL PROTEIN 5.8 G/DL (6.4-8.3); TRANSFERRIN (TIBC) 179.7 mg/dL (215-380)
[2017-08-01 13:19] LABS: AST (GOT) 28 IU/L (2-34); POTASSIUM 4.6 MEQ/L (3.7-5.4); UREA NITROGEN (BUN) 108 mg/dL (9-23)
[2017-08-01 20:47] LABS: LACTATE DEHYDROGENASE 216 IU/L (20-246)
[2017-08-02] VITALS (23 sets, daily range): BP systolic 127–176; BP diastolic 68–95
[2017-08-02 06:16] LABS: BASOPHIL (%) 0.4 % (0-1); EOSINOPHIL (%) 0.6 % (0-5); EOSINOPHIL COUNT 0.1 K/uL (0-0.3); HEMOGLOBIN 9.6 G/DL (12.5-16.6); IMMATURE GRANULOCYTE (%) 0.9 % (0.0-0.7); LYMPHOCYTE (%) 10.4 % (15-42); MCH 27.9 PG (29.0-34.0); MCV 90.1 FL (86-99); MONOCYTE (%) 6.5 % (3-12); MONOCYTE COUNT 0.6 K/uL (0-0.8); NEUTROPHIL (%) 81.2 % (45-76); NEUTROPHIL COUNT 7.6 K/uL (1.8-6.4); NRBC (%) 0.4 /100 WBC (0-0); PLATELET COUNT 214 K/uL (156-360); RBC DIS.WIDTH-CV 17.1 % (11.8-14.6); RBC DIS.WIDTH-SD 52.2 % (39-53); RED BLOOD COUNT 3.44 M/uL (4.00-5.50); WHITE BLOOD COUNT 9.4 K/uL (4.1-10.2)
[2017-08-02 06:57] LABS: ALBUMIN 2.8 G/DL (3.2-4.8); CHLORIDE 111 MEQ/L (99-109); CREATININE 5.5 MG/DL (0.6-1.3); GFR ESTIMATE (CALCULATED) 12 mL/min/ (58.99-99999); GLUCOSE 113 mg/dL (70-99); PHOSPHORUS 6.4 mg/dL (2.5-4.9); POTASSIUM 4.6 MEQ/L (3.7-5.4); SODIUM 147 MEQ/L (136-147)
[2017-08-02 07:06] LABS: UREA NITROGEN (BUN) 107 mg/dL (9-23)
[2017-08-02 09:48] LABS: BASE EXCESS -11.5 mEq/L (-3 to +3); CARBOXY HGB 1.6 % (0-5); METHEMOGLOBIN 1.2 % (0-1.5); PO2 66 mm Hg (80-100)
[2017-08-02 09:49] LABS: BICARBONATE 14.1 mEq/L (22-26); COMMENTS - BLOOD GASES A+C+; DEVICE NC; O2 FLOW 3 L/MIN; PCO2 30 mm Hg (35-45); SITE RR; TOTAL RESP RATE 24 resp/min
[2017-08-02 09:50] LABS: pH 7.28 (7.35-7.45)
[2017-08-02 10:34] LABS: TROP-I INTERPRETATION POSITIVE
[2017-08-02 10:37] LABS: TROPONIN-I 10.85 ng/mL (0.0-0.30)
[2017-08-03] VITALS (16 sets, daily range): BP systolic 131–170; BP diastolic 65–91
[2017-08-03 06:01] LABS: ALBUMIN 2.9 G/DL (3.2-4.8); CHLORIDE 105 MEQ/L (99-109); GLUCOSE 118 mg/dL (70-99); PHOSPHORUS 4.4 mg/dL (2.5-4.9); POTASSIUM 4.3 MEQ/L (3.7-5.4); SODIUM 141 MEQ/L (136-147); UREA NITROGEN (BUN) 74 mg/dL (9-23)
[2017-08-03 06:02] LABS: CREATININE 4.2 MG/DL (0.6-1.3); GFR ESTIMATE (CALCULATED) 16 mL/min/ (58.99-99999)
[2017-08-03 10:22] LABS: HEPATITIS B SURFACE ANTIGEN Nonreactive; HEPATITIS C ANTIBODY Nonreactive
[2017-08-03 10:23] LABS: HEPATITIS B SURFACE ANTIBODY Nonreactive
[2017-08-03 10:45] LABS: ANTI-HEPATITIS B CORE (TOTAL) Nonreactive
[2017-08-04] VITALS (8 sets, daily range): BP systolic 132–175; BP diastolic 65–91
[2017-08-04 05:43] LABS: BASOPHIL (%) 0.6 % (0-1); EOSINOPHIL (%) 4.9 % (0-5); EOSINOPHIL COUNT 0.3 K/uL (0-0.3); HEMATOCRIT 28.7 % (38.0-50.0); HEMOGLOBIN 9.3 G/DL (12.5-16.6); IMMATURE GRANULOCYTE (%) 0.8 % (0.0-0.7); LYMPHOCYTE (%) 13.9 % (15-42); LYMPHOCYTE COUNT 0.9 K/uL (1.0-2.8); MCH 28.4 PG (29.0-34.0); MCHC 32.4 G/DL (30.0-36.0); MCV 87.8 FL (86-99); MONOCYTE (%) 10.7 % (3-12); MONOCYTE COUNT 0.7 K/uL (0-0.8); NEUTROPHIL (%) 69.1 % (45-76); NEUTROPHIL COUNT 4.3 K/uL (1.8-6.4); NRBC (%) 0.3 /100 WBC (0-0); PLATELET COUNT 194 K/uL (156-360); RBC DIS.WIDTH-CV 15.9 % (11.8-14.6); RBC DIS.WIDTH-SD 48.7 % (39-53); RED BLOOD COUNT 3.27 M/uL (4.00-5.50); WHITE BLOOD COUNT 6.3 K/uL (4.1-10.2)
[2017-08-04 06:27] LABS: ALBUMIN 2.8 G/DL (3.2-4.8); CHLORIDE 104 MEQ/L (99-109); CREATININE 3.3 MG/DL (0.6-1.3); GFR ESTIMATE (CALCULATED) 21 mL/min/ (58.99-99999); GLUCOSE 147 mg/dL (70-99); MAGNESIUM 1.8 mg/dl (1.3-2.7); PHOSPHORUS 2.9 mg/dL (2.5-4.9); POTASSIUM 3.9 MEQ/L (3.7-5.4); SODIUM 142 MEQ/L (136-147); UREA NITROGEN (BUN) 45 mg/dL (9-23)
[2017-08-05 04:02] VITALS: BP 167/87
[2017-08-05 07:42] LABS: BASOPHIL (%) 0.7 % (0-1); EOSINOPHIL COUNT 0.4 K/uL (0-0.3); HEMOGLOBIN 10.4 G/DL (12.5-16.6); IMMATURE GRANULOCYTE (%) 0.9 % (0.0-0.7); LYMPHOCYTE (%) 19.9 % (15-42); LYMPHOCYTE COUNT 1.2 K/uL (1.0-2.8); MCH 27.7 PG (29.0-34.0); MCHC 31.5 G/DL (30.0-36.0); MONOCYTE (%) 10.5 % (3-12); MONOCYTE COUNT 0.6 K/uL (0-0.8); NEUTROPHIL COUNT 3.6 K/uL (1.8-6.4); PLATELET COUNT 216 K/uL (156-360); RBC DIS.WIDTH-CV 16.1 % (11.8-14.6); RBC DIS.WIDTH-SD 49.3 % (39-53); RED BLOOD COUNT 3.75 M/uL (4.00-5.50); WHITE BLOOD COUNT 5.8 K/uL (4.1-10.2)
[2017-08-05 07:54] VITALS: BP 168/72
[2017-08-05 08:07] LABS: ALBUMIN 2.9 G/DL (3.2-4.8); CHLORIDE 106 MEQ/L (99-109); CREATININE 3.7 MG/DL (0.6-1.3); GFR ESTIMATE (CALCULATED) 18 mL/min/ (58.99-99999); PHOSPHORUS 3.4 mg/dL (2.5-4.9); POTASSIUM 3.5 MEQ/L (3.7-5.4); SODIUM 143 MEQ/L (136-147); UREA NITROGEN (BUN) 49 mg/dL (9-23)
[2017-08-05 08:09] LABS: GLUCOSE 238 mg/dL (70-99)
[2017-08-05 12:00] VITALS: BP 187/86
[2017-08-05 17:02] VITALS: BP 146/78
[2017-08-05 19:08] VITALS: BP 133/66; BP 175/91
[2017-08-06 04:14] VITALS: BP 160/76
[2017-08-06 09:10] LABS: ALBUMIN 2.7 G/DL (3.2-4.8); CHLORIDE 103 MEQ/L (99-109); CREATININE 3.5 MG/DL (0.6-1.3); GFR ESTIMATE (CALCULATED) 19 mL/min/ (58.99-99999); GLUCOSE 125 mg/dL (70-99); PHOSPHORUS 3.7 mg/dL (2.5-4.9); SODIUM 138 MEQ/L (136-147); UREA NITROGEN (BUN) 47 mg/dL (9-23)
[2017-08-06 09:13] LABS: POTASSIUM 4.6 MEQ/L (3.7-5.4)
[2017-08-06 09:45] VITALS: BP 175/84
[2017-08-06 12:37] VITALS: BP 146/78
[2017-08-06 17:03] VITALS: BP 167/82
[2017-08-06 20:13] VITALS: BP 155/70; BP 156/77
[2017-08-07] VITALS (7 sets, daily range): BP systolic 151–184; BP diastolic 67–93
[2017-08-07 05:20] LABS: ALBUMIN 2.8 g/dL (3.2-4.8)
[2017-08-07 05:21] LABS: CHLORIDE 104 mEq/L (99-109); POTASSIUM 3.7 mEq/L (3.7-5.4); SODIUM 139 mEq/L (136-147)
[2017-08-07 05:22] LABS: GLUCOSE 153 mg/dL (70-99)
[2017-08-07 05:26] LABS: CREATININE 3.9 mg/dL (0.6-1.3); GFR ESTIMATE (CALCULATED) 17 mL/min/ (58.99-99999)
[2017-08-07 05:27] LABS: UREA NITROGEN (BUN) 50 mg/dL (9-23)
[2017-08-08] VITALS (7 sets, daily range): BP systolic 118–194; BP diastolic 59–96
[2017-08-08 11:17] LABS: BASOPHIL (%) 0.7 % (0-1); EOSINOPHIL (%) 5.4 % (0-5); EOSINOPHIL COUNT 0.3 K/uL (0-0.3); HEMATOCRIT 29.8 % (38.0-50.0); HEMOGLOBIN 9.6 G/DL (12.5-16.6); IMMATURE GRANULOCYTE (%) 0.5 % (0.0-0.7); LYMPHOCYTE (%) 22.6 % (15-42); LYMPHOCYTE COUNT 1.3 K/uL (1.0-2.8); MCH 28.5 PG (29.0-34.0); MCHC 32.2 G/DL (30.0-36.0); MCV 88.4 FL (86-99); MONOCYTE (%) 8.3 % (3-12); MONOCYTE COUNT 0.5 K/uL (0-0.8); NEUTROPHIL (%) 62.5 % (45-76); NEUTROPHIL COUNT 3.7 K/uL (1.8-6.4); NRBC (%) 0.3 /100 WBC (0-0); PLATELET COUNT 231 K/uL (156-360); RBC DIS.WIDTH-CV 15.8 % (11.8-14.6); RBC DIS.WIDTH-SD 49.2 % (39-53); RED BLOOD COUNT 3.37 M/uL (4.00-5.50); WHITE BLOOD COUNT 5.9 K/uL (4.1-10.2)
[2017-08-08 11:37] LABS: CHLORIDE 103 MEQ/L (99-109); CREATININE 3.9 MG/DL (0.6-1.3); GFR ESTIMATE (CALCULATED) 17 mL/min/ (58.99-99999); GLUCOSE 147 mg/dL (70-99); PHOSPHORUS 3.7 mg/dL (2.5-4.9); POTASSIUM 3.7 MEQ/L (3.7-5.4); SODIUM 138 MEQ/L (136-147); UREA NITROGEN (BUN) 46 mg/dL (9-23)
[2017-08-08 12:07] LABS: TYPE OF FLUID PLEURAL
[2017-08-08 13:10] LABS: BODY FLUID EOSINOPHILS 0 % (0-25); MONONUCLEAR WBC'S 92 %; POLYNUCLEAR WBC'S 8 % (0-25)
[2017-08-08 13:30] LABS: BODY FLUID GLUCOSE 177 MG/DL; BODY FLUID LDH 135 IU/L
[2017-08-08 13:44] LABS: APPEARANCE CLEAR-YELLOW; BODY FLUID RBC'S 1000 /MM^3 (0-100); BODY FLUID WBC'S 759 /MM^3 (0-500)
[2017-08-08 15:07] LABS: GLUCOSE 181 mg/dL (70-99); LACTATE DEHYDROGENASE 265 IU/L (20-246); TOTAL PROTEIN 6.2 G/DL (6.4-8.3)
[2017-08-09 04:22] VITALS: BP 174/85
[2017-08-09 07:09] VITALS: BP 137/78
[2017-08-09 10:50] LABS: CHLORIDE 102 MEQ/L (99-109); CREATININE 3.9 MG/DL (0.6-1.3); GFR ESTIMATE (CALCULATED) 17 mL/min/ (58.99-99999); GLUCOSE 194 mg/dL (70-99); POTASSIUM 3.8 MEQ/L (3.7-5.4); SODIUM 139 MEQ/L (136-147); UREA NITROGEN (BUN) 48 mg/dL (9-23)
[2017-08-09 16:10] VITALS: BP 178/81
[2017-08-09] MEDS ORDERED: TYLENOL REGULA325 MG PO (17:41)
[2017-08-09] MEDS ORDERED: ZOLPIDEM TARTRAT5 MG PO (17:41)
[2017-08-09] MEDS ORDERED: DOCUSATE SODIU100 MG PO (17:42)
[2017-08-09] MEDS ORDERED: PANTOPRAZOLE SO40 MG PO (17:42)
[2017-08-09] MEDS ORDERED: NOVOLOG 10100 UNITS/ SC (17:43)
[2017-08-09 18:18] VITALS: BP 139/71
== END 2017-08-09 20:19 | DRG 208 ==
LOC: EME 18:51 → 4WEST 20:42 → 4EAST 20:42 → EDOF 20:42 → ENRESERV 20:45 → ENRESERVDT 21:25 → ENRESERV 21:25 → ENRESERVTM 21:25 → 4WEST 22:09 → ENRESERV 08-04 02:53 → 4EAST 08-04 06:03
PROVIDERS: Emergency Medicine Emergency Medical Services; Internal Medicine; Internal Medicine Critical Care Medicine; Internal Medicine Nephrology; Internal Medicine Pulmonary Disease; Obstetrics & Gynecology; Specialist
PROC: 05HM33Z Insertion of Infusion Device into Right Internal Jugular Vein, Percutaneous Approach (ICD-10-PCS; principal; 2017-07-29)
PROC: 0BH17EZ Insertion of Endotracheal Airway into Trachea, Via Natural or Artificial Opening (ICD-10-PCS; principal; 2017-07-29)
PROC: 5A1D70Z Performance of Urinary Filtration, Intermittent, Less than 6 Hours Per Day (ICD-10-PCS; principal; 2017-07-29)
PROC: 30233N1 Transfusion of Nonautologous Red Blood Cells into Peripheral Vein, Percutaneous Approach (ICD-10-PCS; principal; 2017-07-29)
PROC: 5A12012 Performance of Cardiac Output, Single, Manual (ICD-10-PCS; principal; 2017-07-29)
PROC: 5A1945Z Respiratory Ventilation, 24-96 Consecutive Hours (ICD-10-PCS; principal; 2017-07-29)
PROC: 0W3P8ZZ Control Bleeding in Gastrointestinal Tract, Via Natural or Artificial Opening Endoscopic (ICD-10-PCS; 2017-07-30)
PROC: 0W993ZZ Drainage of Right Pleural Cavity, Percutaneous Approach (ICD-10-PCS; 2017-08-01)
PROC: 5A1D70Z Performance of Urinary Filtration, Intermittent, Less than 6 Hours Per Day (ICD-10-PCS; 2017-08-02)
PROC: 5A2204Z Restoration of Cardiac Rhythm, Single (ICD-10-PCS; 2017-08-02)
PROC: 05HM33Z Insertion of Infusion Device into Right Internal Jugular Vein, Percutaneous Approach (ICD-10-PCS; 2017-08-03)
DX: J96.01 Acute respiratory failure with hypoxia (principal); J69.0 Pneumonitis due to inhalation of food and vomit; K92.2 Gastrointestinal hemorrhage, unspecified; G93.1 Anoxic brain damage, not elsewhere classified; I46.9 Cardiac arrest, cause unspecified; D62 Acute posthemorrhagic anemia; N17.9 Acute kidney failure, unspecified; N18.4 Chronic kidney disease, stage 4 (severe); D63.1 Anemia in chronic kidney disease; E11.22 Type 2 diabetes mellitus with diabetic chronic kidney disease; E87.2 Acidosis; I13.0 Hypertensive heart and chronic kidney disease with heart failure and stage 1 through stage 4 chronic kidney disease, or unspecified chronic kidney disease; E11.65 Type 2 diabetes mellitus with hyperglycemia; E11.21 Type 2 diabetes mellitus with diabetic nephropathy; I25.10 Atherosclerotic heart disease of native coronary artery without angina pectoris; E83.51 Hypocalcemia; J01.30 Acute sphenoidal sinusitis, unspecified; J01.00 Acute maxillary sinusitis, unspecified; E87.5 Hyperkalemia; F41.9 Anxiety disorder, unspecified; E11.319 Type 2 diabetes mellitus with unspecified diabetic retinopathy without macular edema; G50.0 Trigeminal neuralgia; N25.81 Secondary hyperparathyroidism of renal origin; E78.5 Hyperlipidemia, unspecified; E11.43 Type 2 diabetes mellitus with diabetic autonomic (poly)neuropathy; L25.9 Unspecified contact dermatitis, unspecified cause; J32.0 Chronic maxillary sinusitis; I49.01 Ventricular fibrillation; K31.84 Gastroparesis; I47.2 Ventricular tachycardia; E83.39 Other disorders of phosphorus metabolism; F32.9 Major depressive disorder, single episode, unspecified; E66.9 Obesity, unspecified; J98.09 Other diseases of bronchus, not elsewhere classified; Z68.28 Body mass index [BMI] 28.0-28.9, adult; Z99.2 Dependence on renal dialysis; Z87.441 Personal history of nephrotic syndrome; I25.2 Old myocardial infarction; Z95.1 Presence of aortocoronary bypass graft; Z79.82 Long term (current) use of aspirin; Z79.02 Long term (current) use of antithrombotics/antiplatelets; Z86.73 Personal history of transient ischemic attack (TIA), and cerebral infarction without residual deficits; Z83.3 Family history of diabetes mellitus; Z82.49 Family history of ischemic heart disease and other diseases of the circulatory system
CPT/HCPCS: 36600; 70450; 70551; 71045; 76942; 80048; 80048 91; 80053; 80069; 81003; 82150; 82803; 82945; 82947; 82948; 83605; 83615; 83615 91; 83690; 83735; 84100; 84132 91; 84155; 84157; 84466; 84484; 85014; 85018; 85025; 85027; 85610; 85730; 86704; 86706; 86803; 86850; 86900; 86901; 86920; 87040; 87070; 87075; 87116; 87205; 87206; 87340; 87502; 87641; 88108; 88305; 89051; 93005; 93306; 93970; 94002; 94003; 94010; 94667; 94668; 94760; 94799; 97530 GO; 97530 GP; 99202; 99281; 99285; A6212; C1753; C1788; C9113; G0480; J0171; J0282; J0295; J0360; J0610; J1644; J1815; J1940; J2250; J2354; J2704; J2765; J7050; P9016; P9045

== ENCOUNTER 2017-09-26 07:09 | Day surgery (SDC) | payer OTHER ==
[~2017-09-26] VITALS: Ht 170.2 cm; Wt 79.0 kg
[~2017-09-26 07:09] MED LIST changes: +ADALAT CC 30 MG30 MG PO; +ASPIR-LOW81 MG PO; +BEANO PO; +DOCUSATE SODIU100 MG PO; +FUROSEMIDE80 MG PO; +GLIPIZIDE5 MG PO; +HYDRALAZINE HC100 MG PO; +NOVOLOG 10100 UNITS/ SC
== END 2017-09-26 10:47 | disposition home or self-care (01) ==
LOC: CATH 07:09
PROVIDERS: Surgery
PROC: 0JH63XZ Insertion of Tunneled Vascular Access Device into Chest Subcutaneous Tissue and Fascia, Percutaneous Approach (ICD-10-PCS; principal; 2017-09-26)
DX: I12.0 Hypertensive chronic kidney disease with stage 5 chronic kidney disease or end stage renal disease (principal); E11.22 Type 2 diabetes mellitus with diabetic chronic kidney disease; N18.6 End stage renal disease; I25.10 Atherosclerotic heart disease of native coronary artery without angina pectoris; E78.00 Pure hypercholesterolemia, unspecified; Z86.73 Personal history of transient ischemic attack (TIA), and cerebral infarction without residual deficits; Z95.1 Presence of aortocoronary bypass graft; Z79.4 Long term (current) use of insulin; Z79.02 Long term (current) use of antithrombotics/antiplatelets; Z79.82 Long term (current) use of aspirin
CPT/HCPCS: 82948; 87641; C1750; C1894; J0360; J0690; J1200; J1644; J2250; S0020

== ENCOUNTER 2017-10-30 12:24 | Day surgery (SDC) | payer OTHER ==
[~2017-10-30] VITALS: Ht 170.2 cm; Wt 73.0 kg
[2017-10-30 13:01] LABS: HEMOGLOBIN 11.1 G/DL (12.5-16.6); MCH 28.8 PG (29.0-34.0); MCHC 31.7 G/DL (30.0-36.0); MCV 90.7 FL (86-99); PLATELET COUNT 263 K/uL (156-360); RBC DIS.WIDTH-CV 15.9 % (11.8-14.6); RED BLOOD COUNT 3.86 M/uL (4.00-5.50); WHITE BLOOD COUNT 6.4 K/uL (4.1-10.2)
[2017-10-30 13:21] LABS: CHLORIDE 97 MEQ/L (99-109); CREATININE 2.4 MG/DL (0.6-1.3); GFR ESTIMATE (CALCULATED) 30 mL/min/ (58.99-99999); GLUCOSE 167 mg/dL (70-99); POTASSIUM 4.2 MEQ/L (3.7-5.4); SODIUM 141 MEQ/L (136-147); UREA NITROGEN (BUN) 16 mg/dL (9-23)
[2017-10-30 13:33] VITALS: BP 134/78
[2017-10-30 20:15] VITALS: BP 186/90
[2017-10-30 20:50] VITALS: BP 184/80
== END 2017-10-30 21:23 | disposition home or self-care (01) ==
LOC: SDC 12:24
PROVIDERS: Surgery
DX: I12.0 Hypertensive chronic kidney disease with stage 5 chronic kidney disease or end stage renal disease (principal); E11.22 Type 2 diabetes mellitus with diabetic chronic kidney disease; N18.6 End stage renal disease; Z79.4 Long term (current) use of insulin; I25.10 Atherosclerotic heart disease of native coronary artery without angina pectoris; D64.9 Anemia, unspecified; E78.00 Pure hypercholesterolemia, unspecified; Z86.73 Personal history of transient ischemic attack (TIA), and cerebral infarction without residual deficits; F41.8 Other specified anxiety disorders; Z79.82 Long term (current) use of aspirin; Z79.02 Long term (current) use of antithrombotics/antiplatelets; Z95.1 Presence of aortocoronary bypass graft
CPT/HCPCS: 80048; 82948; 85027; 87641; 93005; C1768; J0690; J1644; J2250; J2720; S0020

== ENCOUNTER → 2017-11-29 | Outpatient (CLI) | payer SELFPAY | END | disposition home or self-care (01) | LOC: AMB 10:23 | PROC: 02PYX3Z Removal of Infusion Device from Great Vessel, External Approach (ICD-10-PCS; principal; 2017-11-29) | DX: Z45.2 Encounter for adjustment and management of vascular access device (principal); N18.6 End stage renal disease ==